=== PATIENT | female | born 1960 | race Caucasian/White ===

== ENCOUNTER 2017-06-09 08:43 | Inpatient (IN) | payer MEDICARE ==
[~2017-06-09] VITALS: Ht 172.7 cm; Wt 89.5 kg
[2017-06-09] VITALS (8 sets, daily range): BP systolic 147–165; BP diastolic 79–98; PULSE 86–95; RESP 18–20; TEMP 97.7–98.2; O2SAT 93–99
--- NOTE | 2017-06-09 09:08 | PD ---
HPI Chief Complaint: Abdominal Pain Time Seen by Provider: 09:08 Travel History International Travel<30 days: No Contact w/Intl Traveler<30days: No Traveled to known affect area: No History of Present Illness HPI 56-year-old female came to the emergency room with history of epigastric pain, vomiting and retching. She was brought in by EMS. Patient has history of pancreatitis in the past. Her last pancreatitis attack was 2 years ago. Patient had 4 beers last night. She started having this pain early this morning. Patient was in significant distress and it was difficult to get a complete history out of her. No blood in the vomit. Her vital signs were stable. Pain radiates to the back. No aggravating or relieving symptoms identified. [facility] Past Medical History Narrative Medical List of her past medical, surgical, social and family history is reviewed from the nursing note Diminished Hearing: No Hiatal Hernia: Yes Musculoskeletal: Yes (CHRONIC BACK PAIN) Pancreatitis: Yes Tetanus Vaccination: Unknown Influenza Vaccination: No ?: Not Past Surgical History Cholecystectomy: Yes Social History Alcohol Use: Yes (YESTERDAY ) Tobacco Use: No (20 PACK YEARS ) Substance Use: No Allergies-Medications (Allergen,Severity, Reaction): Coded Allergies: codeine (Verified Allergy, Intermediate, Hives, 06/09/17) Comments List of her allergies reviewed from the nursing note. Reported Meds & Prescriptions Reported Meds & Active Scripts Active Narrative Medication Waiting for the nurse to do the med reconciliation. Review of Systems Except as stated in HPI: all other systems reviewed are Neg Gastrointestinal: Positive: Nausea, Vomiting, Abdominal Pain Physical Exam Narrative GENERAL: Awake, alert, anxious, significant distress SKIN: Focused skin assessment warm/dry. HEAD: Atraumatic. Normocephalic. EYES: Pupils equal and round. No scleral icterus. No injection or drainage. ENT: No nasal bleeding or discharge. Mucous membranes pink and moist. NECK: Trachea midline. No JVD. CARDIOVASCULAR: Regular rate and rhythm. No murmur appreciated. RESPIRATORY: No accessory muscle use. Clear to auscultation. Breath sounds equal bilaterally. GASTROINTESTINAL: Abdomen soft, non-tender, nondistended. Hepatic and splenic margins not palpable. MUSCULOSKELETAL: No obvious deformities. No clubbing. No cyanosis. No edema. NEUROLOGICAL: Awake and alert. No obvious cranial nerve deficits. Motor grossly within normal limits. Normal speech. PSYCHIATRIC: Appropriate mood and affect; insight and judgment normal. Data Data Last Documented VS Orders Orders Complete Blood Count With Diff (06/09/17 09:13) Comprehensive Metabolic Panel (06/09/17 09:13) Lipase (06/09/17 09:13) Iv Access Insert/Monitor (06/09/17 09:13) Ecg Monitoring (06/09/17 09:13) Oximetry (06/09/17 09:13) Morphine Inj (Morphine Inj) (06/09/17 09:15) Ondansetron Inj (Zofran Inj) (06/09/17 09:15) Sodium Chlor 0.9% 1000 Ml Inj (Ns 1000 M (06/09/17 09:13) Sodium Chloride 0.9% Flush (Ns Flush) (06/09/17 09:15) Morphine Inj (Morphine Inj) (06/09/17 10:15) Us Abdomen Liver (06/09/17 ) Admit Order (Ed Use Only) (06/09/17 10:37) Labs Laboratory Tests Test 06/09/17 09:05 White Blood Count 9.7 TH/MM3 Red Blood Count 4.79 MIL/MM3 Hemoglobin 15.3 GM/DL Hematocrit 43.4 % Mean Corpuscular Volume 90.5 FL Mean Corpuscular Hemoglobin 31.8 PG Mean Corpuscular Hemoglobin Concent 35.2 % Red Cell Distribution Width 13.0 % Platelet Count 298 TH/MM3 Mean Platelet Volume 7.1 FL Neutrophils (%) (Auto) 62.9 % Lymphocytes (%) (Auto) 29.6 % Monocytes (%) (Auto) 6.9 % Eosinophils (%) (Auto) 0.3 % Basophils (%) (Auto) 0.3 % Neutrophils # (Auto) 6.1 TH/MM3 Lymphocytes # (Auto) 2.9 TH/MM3 Monocytes # (Auto) 0.7 TH/MM3 Eosinophils # (Auto) 0.0 TH/MM3 Basophils # (Auto) 0.0 TH/MM3 CBC Comment DIFF FINAL Differential Comment Blood Urea Nitrogen 14 MG/DL Creatinine 0.67 MG/DL Random Glucose 178 MG/DL Total Protein 7.9 GM/DL Albumin 4.1 GM/DL Calcium Level 8.4 MG/DL Alkaline Phosphatase 132 U/L Aspartate Amino Transf (AST/SGOT) 388 U/L Alanine Aminotransferase (ALT/SGPT) 175 U/L Total Bilirubin 0.5 MG/DL Sodium Level 134 MEQ/L Potassium Level 3.4 MEQ/L Chloride Level 100 MEQ/L Carbon Dioxide Level 23.8 MEQ/L Anion Gap 10 MEQ/L Lactate Dehydrogenase 486 U/L Triglycerides Level 516 MG/DL Cholesterol Level 179 MG/DL LDL Cholesterol MG/DL HDL Cholesterol 66.5 MG/DL Cholesterol/HDL Ratio 2.69 RATIO Lipase 6182 U/L Ethyl Alcohol Level 106 MG/DL MDM Medical Decision Making Medical Screen Exam Complete: Yes Emergency Medical Condition: Yes Medical Record Reviewed: Yes Differential Diagnosis Acute pancreatitis, acute gastritis Narrative Course 10:24 AM blood test results are back and patient has elevated LFTs and lipase. She was given medications twice for pain control. I have ordered for 1 L of IV fluid bolus. Patient will need to be admitted for intractable pain. Procedures EKG Prior to Arrival: No Diagnosis Primary Impression: Acute pancreatitis Qualified Codes: K85.20 - Alcohol induced acute pancreatitis without necrosis or infection Additional Impression: Intractable pain Admitting Information Admitting Physician Requests: Admit Scripts [guaiFENesin ER] 600 MG TABCR No Conflict Check 600 MG PO BID, #15 Prov: Brea Nicole MD R1 06/11/17 Citalopram (Celexa) 40 Mg Tab 40 MG PO DAILY, #30 TAB Prov: Brea Nicole MD R1 06/11/17 Ezetimibe (Zetia) 10 Mg Tab 10 MG PO DAILY, #30 TAB Prov: Brea Nicole MD R1 06/11/17 Khanh Esteban MD Jun 09, 2017 09:08
[2017-06-09] MEDS ORDERED: SODIUM CHLOR 0.9% 1000 ML INJ 1,000 ML IV SCH ×2 (09:13→12:00)
[2017-06-09] MEDS ORDERED: ONDANSETRON HCL 4 MG/2 ML VIAL IVP ONE (09:15)
[2017-06-09] MEDS ORDERED: MORPHINE SULFATE 4 MG/ML INJ IV PUSH ONE (09:15)
[2017-06-09] MEDS ORDERED: SODIUM CHLORIDE 0.9% FLUSH 10 ML FLUSH IV FLUSH PRN ×2 (09:15→10:45)
[2017-06-09 09:22] LABS: AUTOMATED NEUTROPHIL # 6.1 TH/MM3 (1.8-7.7); BASOPHIL % 0.3 % (0.0-2.0); EOSINOPHIL % 0.3 % (0.0-4.0); HEMATOCRIT 43.4 % (35.0-46.0); HEMOGLOBIN 15.3 GM/DL (11.6-15.3); LYMPH % 29.6 % (9.0-44.0); LYMPHOCYTE # 2.9 TH/MM3 (1.0-4.8); MEAN CELL VOLUME 90.5 FL (80.0-100.0); MEAN CORPUSCULAR HEMOGLOBIN 31.8 PG (27.0-34.0); MEAN CORPUSCULAR HGB CONC 35.2 % (32.0-36.0); MEAN PLATELET VOLUME 7.1 FL (7.0-11.0); MONO % 6.9 % (0.0-8.0); MONOCYTE # 0.7 TH/MM3 (0-0.9); NEUT % 62.9 % (16.0-70.0); PLATELET COUNT 298 TH/MM3 (150-450); RED BLOOD COUNT 4.79 MIL/MM3 (4.00-5.30); WHITE BLOOD COUNT 9.7 TH/MM3 (4.0-11.0)
[2017-06-09 09:37] LABS: ALBUMIN 4.1 GM/DL (3.4-5.0); AST (GOT) 388 U/L (15-37); BICARBONATE 23.8 MEQ/L (21.0-32.0); BLOOD UREA NITROGEN 14 MG/DL (7-18); CALCIUM 8.4 MG/DL (8.5-10.1); CHLORIDE 100 MEQ/L (98-107); CREATININE 0.67 MG/DL (0.50-1.00); GLUCOSE,RANDOM 178 MG/DL (74-106); SODIUM (NA) 134 MEQ/L (136-145)
[2017-06-09 09:38] LABS: ALT (GPT) 175 U/L (10-53)
[2017-06-09 09:41] LABS: ALKALINE PHOSPHATASE 132 U/L (45-117); TOTAL BILIRUBIN ADULT 0.5 MG/DL (0.2-1.0); TOTAL PROTEIN 7.9 GM/DL (6.4-8.2)
[2017-06-09] MEDS ORDERED: MORPHINE SULFATE 2 MG/ML INJ IV PUSH ONE (10:15)
--- NOTE | 2017-06-09 10:44 | HHI.HP ---
[facility] Service Family Medicine Primary Care Physician Flori Loo M.D. Admission Diagnosis Acute pancreatitis, intractable abdominal pain Diagnoses: International Travel<30 Days: No Contact w/Intl Traveler<30days: No Known Affected Area: No History of Present Illness 56 yr old w/ PMHx of pancreatitis presents to the ED with severe abdominal pain. She reports that she woke up this morning 5am with severe abdominal pain- epigastric, constant, aching, radiating to the back, 10/10, nothing makes it better or worse. She tried taking 1pill of hydrocodone, used for chronic back pain, w/o pain relief. She called 911, brought via EMS to the ED. She admits to drinking 3-4 beers last night, no hard liquor. She reports drinking twice/ week. She was admitted for pancreatis 2 years ago at [facility], 5 day hospital stay, pain controlled with morphine. Last meal was 6pm yesterday. Pt reports started a weight loss pill a week ago, unsure of the name. She denies hx of gallstones, had her gallstone removed 3 years ago. She endorses dry heaving and intermittent nausea. She complains of dysuria, not sure when it started. She denies fevers, vomiting, CP, and SOB. (Brea Nicole MD R1) Review of Systems Constitutional: COMPLAINS OF: Chills (mild chills), Night Sweats, DENIES: Fever Eyes: DENIES: Blurred vision Ears, nose, mouth, throat: DENIES: Throat pain, Ear Pain, Running Nose Respiratory: DENIES: Cough, Shortness of breath Cardiovascular: DENIES: Chest pain Gastrointestinal: COMPLAINS OF: Abdominal pain, Nausea, DENIES: Diarrhea, Vomiting Musculoskeletal: DENIES: Muscle aches Integumentary: DENIES: Rash Hematologic/lymphatic: DENIES: Bruising Neurologic: DENIES: Headache (Brea Nicole MD R1) Past Family Social History Past Medical History chronic back pain, she reports taking 3 pills of unknown dose of hydrocodone for 4 years, prescribed by her pain doctor, Dr. Stevens. depression hx of hiatal hernia Past Surgical History Gallbladder 3 years ago (Brea Nicole MD R1) Allergies: Coded Allergies: codeine (Verified Allergy, Intermediate, Hives, 06/09/17) Family History No hx of pancreatic cancer Social History Live alone, disabled due /chronic back pain due to fall quit 15 years ago, smoke 20 years 1ppd Drink 2 twice/week Denies illicit drug use 5 birds 2 dogs (Brea Nicole MD R1) Physical Exam Vital Signs Vital Signs Date Time Temp Pulse Resp B/P (MAP) Pulse Ox O2 Delivery O2 Flow Rate FiO2 06/09/17 09:35 18 06/09/17 09:21 98 Room Air 06/09/17 09:00 20 06/09/17 09:00 97.8 94 20 160/87 (111) Room Air 06/09/17 08:55 97.9 91 20 160/87 (111) 97 Physical Exam GENERAL patient lying in bed, uncomfortable, complaining of severe epigastric pain SKIN: No rashes, ecchymoses or lesions. Cool and dry. HEAD: Atraumatic. Normocephalic. No temporal or scalp tenderness. EYES: Pupils equal round and reactive. Extraocular motions intact. No scleral icterus. No injection or drainage. ENT: Nose without bleeding, purulent drainage or septal hematoma. Throat without erythema, tonsillar hypertrophy or exudate. Uvula midline. Airway patent. NECK: Trachea midline. No JVD or lymphadenopathy. Supple, nontender, no meningeal signs. CARDIOVASCULAR: Regular rate and rhythm without murmurs, gallops, or rubs. RESPIRATORY: Clear to auscultation. Breath sounds equal bilaterally. No wheezes , rales, or rhonchi. GASTROINTESTINAL: moderate tenderness to palpation in epigastric region, ND, + BS, no masses MUSCULOSKELETAL: Extremities without clubbing, cyanosis, or edema. No joint tenderness, effusion, or edema noted. NEUROLOGICAL: Awake, alert, oriented x3 Laboratory Laboratory Tests Test 06/09/17 09:05 White Blood Count 9.7 Red Blood Count 4.79 Hemoglobin 15.3 Hematocrit 43.4 Mean Corpuscular Volume 90.5 Mean Corpuscular Hemoglobin 31.8 Mean Corpuscular Hemoglobin Concent 35.2 Red Cell Distribution Width 13.0 Platelet Count 298 Mean Platelet Volume 7.1 Neutrophils (%) (Auto) 62.9 Lymphocytes (%) (Auto) 29.6 Monocytes (%) (Auto) 6.9 Eosinophils (%) (Auto) 0.3 Basophils (%) (Auto) 0.3 Neutrophils # (Auto) 6.1 Lymphocytes # (Auto) 2.9 Monocytes # (Auto) 0.7 Eosinophils # (Auto) 0.0 Basophils # (Auto) 0.0 CBC Comment DIFF FINAL Differential Comment Blood Urea Nitrogen 14 Creatinine 0.67 Random Glucose 178 Total Protein 7.9 Albumin 4.1 Calcium Level 8.4 Alkaline Phosphatase 132 Aspartate Amino Transf (AST/SGOT) 388 Alanine Aminotransferase (ALT/SGPT) 175 Total Bilirubin 0.5 Sodium Level 134 Potassium Level 3.4 Chloride Level 100 Carbon Dioxide Level 23.8 Anion Gap 10 Lipase 6182 (Brea Nicole MD R1) Result Diagram: 06/09/17 0905 06/09/17 0905 Imaging Last Impressions Liver Ultrasound 06/09/17 0000 Signed Impressions: Service Date/Time: Friday, June 09, 2017 10:52 - CONCLUSION: Mild hepatomegaly and likely hepatic steatosis. No focal sonographic findings. Anil Kurtz MD (Brea Nicole MD R1) Caprini VTE Risk Assessment Caprini VTE Risk Assessment: No/Low Risk (score <= 1) Caprini Risk Assessment Model Point Value = 1 Point Value = 2 Point Value = 3 Point Value = 5 Age 41-60 Minor surgery BMI > 25 kg/m2 Swollen legs Varicose veins or History of unexplained or recurrent spontaneous Oral contraceptives or hormone replacement Sepsis (< 1 month) Serious lung disease, including pneumonia (< 1 month) Abnormal pulmonary function Acute myocardial infarction Congestive heart failure (< 1 month) History of inflammatory bowel disease Medical patient at bed rest Age 61-74 Arthroscopic surgery Major open surgery (> 45 min) Laparoscopic surgery (> 45 min) Malignancy Confined to bed (> 72 hours) Immobilizing plaster cast Central venous access Age >= 75 History of VTE Family history of VTE Factor V Leiden Prothrombin [id number] Lupus anticoagulant Anticardiolipin antibodies Elevated serum homocysteine Heparin-induced thrombocytopenia Other congenital or acquired thrombophilia Stroke (< 1 month) Elective arthroplasty Hip, pelvis, or leg fracture Acute spinal cord injury (< 1 month) Prophylaxis Regimen Total Risk Factor Score Risk Level Prophylaxis Regimen 0-1 Low Early ambulation 2 Moderate Order ONE of the following: *Sequential Compression Device (SCD) *Heparin 5000 units SQ BID 3-4 Higher Order ONE of the following medications: *Heparin 5000 units SQ TID *Enoxaparin/Lovenox 40 mg SQ daily (WT < 150 kg, CrCl > 30 mL/min) *Enoxaparin/Lovenox 30 mg SQ daily (WT < 150 kg, CrCl > 10-29 mL/min) *Enoxaparin/Lovenox 30 mg SQ BID (WT < 150 kg, CrCl > 30 mL/min) AND/OR *Sequential Compression Device (SCD) 5 or more Highest Order ONE of the following medications: *Heparin 5000 units SQ TID (Preferred with Epidurals) *Enoxaparin/Lovenox 40 mg SQ daily (WT < 150 kg, CrCl > 30 mL/min) *Enoxaparin/Lovenox 30 mg SQ daily (WT < 150 kg, CrCl > 10-29 mL/min) *Enoxaparin/Lovenox 30 mg SQ BID (WT < 150 kg, CrCl > 30 mL/min) AND *Sequential Compression Device (SCD) (Brea Nicole MD R1) Assessment and Plan Assessment and Plan 56 yr old w/ hx of pancreatitis admitted for acute pancreatitis Code Status Full code Discussed Condition With Dr. Carlos and Dr. Velazquez (Brea Nicole MD R1) Attending Attestation THIS CASE WAS DISCUSSED WITH THE RESIDENT PHYSICIANS. I HAVE REVIEWED THE RECORD AND AGREE WITH THE ABOVE NOTE AND PLAN OF CARE WAS DISCUSSED. I HAVE AUTHORIZED THE ORDER FOR ADMISSION TO AN IN-PATIENT STATUS. (Xavier Carlos MD) Problem List: (1) Acute pancreatitis ICD Codes: K85.90 - Acute pancreatitis without necrosis or infection, unspecified Status: Acute Plan: Alcoholic induced pancreatitis vs hypertriglyceridemia vs gallstone obstruction Afebrile. No leukocytosis on CBC Elevated lipase 6182 AST elevated at 388, ALT elevated at 175 Alk phos elevated at 132 LDH elevated at 486 Lipid profile pending UDS and ethanol level pending Liver US demonstrated mild hepatomegaly and likely hepatic steatosis. Lu's score 2 due to AST 250 and LDH >350, severe pancreatitis unklikely Lactated ringer's at 190mls/hr- at 1 1/2 maintenance, pt not hypotensive Pain control: Toradol 30mg IV Push q6hr PRN pain 6-10, Dilaudid 1mg IV Push q6hr pain 6-10, Dilaudid 0.5mg IV Push breakthrough pain Zofran 4mg IV q4h for N/V PRN (2) Chronic back pain ICD Codes: M54.9 - Dorsalgia, unspecified; G89.29 - Other chronic pain Plan: Patient reports taking 3 pills of unknown dose of hydrocodone for 4 years Pain control as above (3) Nutrition, metabolism, and development symptoms ICD Codes: R63.8 - Other symptoms and signs concerning food and fluid intake Plan: Diet: NPO Fluids: LR 190mls/hr monitor I &Os, vitals q4hr DVTs: heparin 5,000 q8h, SCDs (Brea Nicole MD R1) Physician Certification 2 Midnight Certification Type: Admission for Inpatient Services Order for Inpatient Services The services are ordered in accordance with Medicare regulations or non- Medicare payer requirements, as applicable. In the case of services not specified as inpatient-only, they are appropriately provided as inpatient services in accordance with the 2-midnight benchmark. Estimated LOS (days): 2 2 days is the estimated time the patient will need to remain in the hospital, assuming treatment plan goals are met and no additional complications. Post-Hospital Plan: Home (Brea Nicole MD R1) Problem Qualifiers (1) Acute pancreatitis: Qualified Codes: K85.20 - Alcohol induced acute pancreatitis without necrosis or infection Brea Nicole MD R1 Jun 09, 2017 10:44 Xavier Carlos MD Jun 09, 2017 14:46
[2017-06-09] MEDS ORDERED: ONDANSETRON HCL 4 MG/2 ML VIAL IV PUSH PRN (11:15)
--- NOTE | 2017-06-09 11:34 | RADRPT ---
EXAM DATE/TIME: 06/09/2017 10:52 [facility] COMPARISON: No previous studies available for comparison. INDICATIONS : Nausea/vomiting. MEDICAL HISTORY : Pancreatitis. Hernia, hiatal. Chronic back pain. SURGICAL HISTORY : Cholecystectomy. ENCOUNTER: Initial ACUITY: 1 day PAIN SCORE: 10/10 LOCATION: Bilateral upper quadrant MEASUREMENTS: LIVER: 19.1 cm length COMMON DUCT: 8 mm RIGHT KIDNEY: 10.7 x 4.7 x 4.7 cm SPLEEN: 12.4 cm length FINDINGS: LIVER: Enlarged with diffuse increase in echogenicity suggesting steatosis. No focal mass or biliary ductal dilatation COMMON DUCT: No intraluminal mass or stone visualized. GALLBLADDER: Surgically absent. PANCREAS: The visualized portions are within normal limits. RIGHT KIDNEY: No hydronephrosis, stone or mass. SPLEEN: No focal lesion. CONCLUSION: Mild hepatomegaly and likely hepatic steatosis. No focal sonographic findings. Anil Kurtz MD on June 09, 2017 at 11:29 Board Certified Radiologist. This report was verified electronically.
[2017-06-09] MEDS ORDERED: LORazepam 1 MG TAB PO PRN (11:45)
[2017-06-09] MEDS ORDERED: LORazepam 2 MG TAB PO PRN (11:45)
[2017-06-09] MEDS ORDERED: LORazepam 2 MG/ML VIAL IV PUSH PRN ×4 (11:45)
[2017-06-09] MEDS ORDERED: FLUMAZENIL 0.5 MG/5 ML VIAL IV PUSH PRN (11:45)
[2017-06-09] MEDS ORDERED: KETOROLAC TROMETHAMINE 30 MG/ML (IVP) VIAL IV PUSH SCH (12:00)
[2017-06-09] MEDS ORDERED: HYDROmorphone HCL PF 1 MG/ML VIAL IV PUSH PRN (12:00)
[2017-06-09] MEDS: SODIUM CHLORIDE 0.9% FLUSH 10 ML FLUSH IV FLUSH SCH ×2 (12:13→21:31)
[2017-06-09] MEDS: LACTATED RINGER'S 1000 ML INJ 1,000 ML IV SCH ×2 (12:13→17:34)
[2017-06-09] MEDS: HEPARIN SODIUM - SQ 10,000 UNITS/ML VIAL SQ SCH ×2 (12:13→21:35)
[2017-06-09] MEDS ORDERED: KETOROLAC TROMETHAMINE 30 MG/ML (IVP) VIAL IV PUSH PRN ×2 (12:30→14:45)
[2017-06-09] MEDS ORDERED: HYDROmorphone HCL PF 2 MG/ML VIAL IV PUSH PRN (12:30)
[2017-06-09 12:33] LABS: CHOLESTEROL/ HDL RATIO 2.69 RATIO; HDL CHOLESTEROL 66.5 MG/DL (40.0-60.0)
--- NOTE | 2017-06-09 14:46 | HHI.HP ---
[facility] Service Family Medicine Primary Care Physician Flori Loo M.D. Admission Diagnosis Acute pancreatitis, intractable abdominal pain Diagnoses: (1) Acute pancreatitis (2) Chronic back pain (3) Nutrition, metabolism, and development symptoms International Travel<30 Days: No Contact w/Intl Traveler<30days: No Known Affected Area: No History of Present Illness 56-year-old female presenting to the emergency department with epigastric abdominal pain and found to have pancreatitis. She has a history of pancreatitis 2 years ago requiring hospitalization at [facility]. She states this episode came on suddenly upon awakening at 5 AM. She describes it as a severe, sharp, stabbing epigastric abdominal pain that was radiating to the back. She states that it was 10/10 in intensity and was constant. She denies any vomiting with this, however she has felt nauseated and has had some dry heaves. She did try to take a pain medication, 1 pill of hydrocodone ( unknown dose), without any benefit. She has a past history of heavy alcohol use including vodka and beer, however she states she has not drank heavily for 5 years. She states that yesterday evening, she had 4 beers, however this was the only alcohol that she has had over the last week at least. She denies chest pain or palpitations, she denies fevers or chills, she denies emesis/hematemesis, she denies diarrhea or dysuria. She denies hx of gallstones, had her gallbladder removed 3 years ago. She denies any recent new medications or antibiotic use. Of note, she states that she did start a [id number] weight loss supplement 1 week ago. She is unsure of the name or the ingredients of the supplement. Is contacting her to obtain this information. Review of Systems Constitutional: DENIES: Fatigue, Fever, Chills Respiratory: DENIES: Cough, Wheezing, Sputum production, Shortness of breath Cardiovascular: DENIES: Chest pain, Palpitations, Lower Extremity Edema Gastrointestinal: COMPLAINS OF: Abdominal pain, Nausea, DENIES: Black stools, Bloody stools, Constipation, Diarrhea, Vomiting, Difficulty Swallowing Musculoskeletal: DENIES: Joint pain Psychiatric: DENIES: Anxiety Past Family Social History Past Medical History chronic back pain, she reports taking 3 pills of unknown dose of hydrocodone for 4 years, prescribed by her pain doctor, Dr. Stevens. depression hx of hiatal hernia Past Surgical History Gallbladder 3 years ago Allergies: Coded Allergies: codeine (Verified Allergy, Intermediate, Hives, 06/09/17) Family History No hx of pancreatic cancer Social History Live alone, disabled due /chronic back pain due to fall quit 15 years ago, smoke 20 years 1ppd Drink 2 twice/week Denies illicit drug use 5 birds 2 dogs Physical Exam Vital Signs Vital Signs Date Time Temp Pulse Resp B/P (MAP) Pulse Ox O2 Delivery O2 Flow Rate FiO2 06/09/17 13:18 06/09/17 13:00 86 20 147/79 (101) 99 Room Air 06/09/17 11:00 90 20 165/89 (114) 99 Room Air 06/09/17 10:40 18 06/09/17 09:35 18 06/09/17 09:21 98 Room Air 06/09/17 09:00 20 06/09/17 09:00 97.8 94 20 160/87 (111) Room Air 06/09/17 08:55 97.9 91 20 160/87 (111) 97 Physical Exam GENERAL patient lying in bed, uncomfortable, complaining of severe epigastric pain and holding her stomach SKIN: Multiple tattoos on her upper extremities HEAD: Atraumatic. Normocephalic. CARDIOVASCULAR: Regular rate and rhythm without murmurs, gallops, or rubs. RESPIRATORY: Clear to auscultation. Breath sounds equal bilaterally. No wheezes , rales, or rhonchi. GASTROINTESTINAL: moderate tenderness to palpation in epigastric region, ND, + BS, no significant rebound or guarding MUSCULOSKELETAL: Extremities without clubbing, cyanosis, or edema. NEUROLOGICAL: Awake, alert, oriented x3 Laboratory Laboratory Tests Test 06/09/17 09:05 White Blood Count 9.7 Red Blood Count 4.79 Hemoglobin 15.3 Hematocrit 43.4 Mean Corpuscular Volume 90.5 Mean Corpuscular Hemoglobin 31.8 Mean Corpuscular Hemoglobin Concent 35.2 Red Cell Distribution Width 13.0 Platelet Count 298 Mean Platelet Volume 7.1 Neutrophils (%) (Auto) 62.9 Lymphocytes (%) (Auto) 29.6 Monocytes (%) (Auto) 6.9 Eosinophils (%) (Auto) 0.3 Basophils (%) (Auto) 0.3 Neutrophils # (Auto) 6.1 Lymphocytes # (Auto) 2.9 Monocytes # (Auto) 0.7 Eosinophils # (Auto) 0.0 Basophils # (Auto) 0.0 CBC Comment DIFF FINAL Differential Comment Blood Urea Nitrogen 14 Creatinine 0.67 Random Glucose 178 Total Protein 7.9 Albumin 4.1 Calcium Level 8.4 Alkaline Phosphatase 132 Aspartate Amino Transf (AST/SGOT) 388 Alanine Aminotransferase (ALT/SGPT) 175 Total Bilirubin 0.5 Sodium Level 134 Potassium Level 3.4 Chloride Level 100 Carbon Dioxide Level 23.8 Anion Gap 10 Lactate Dehydrogenase 486 Triglycerides Level 516 Cholesterol Level 179 HDL Cholesterol 66.5 Cholesterol/HDL Ratio 2.69 Lipase 6182 Ethyl Alcohol Level 106 Result Diagram: 06/09/17 0905 06/09/17 0905 Imaging Last Impressions Liver Ultrasound 06/09/17 0000 Signed Impressions: Service Date/Time: Friday, June 09, 2017 10:52 - CONCLUSION: Mild hepatomegaly and likely hepatic steatosis. No focal sonographic findings. MD Brittany Meza VTE Risk Assessment Caprini VTE Risk Assessment: No/Low Risk (score <= 1) Caprini Risk Assessment Model Point Value = 1 Point Value = 2 Point Value = 3 Point Value = 5 Age 41-60 Minor surgery BMI > 25 kg/m2 Swollen legs Varicose veins or History of unexplained or recurrent spontaneous Oral contraceptives or hormone replacement Sepsis (< 1 month) Serious lung disease, including pneumonia (< 1 month) Abnormal pulmonary function Acute myocardial infarction Congestive heart failure (< 1 month) History of inflammatory bowel disease Medical patient at bed rest Age 61-74 Arthroscopic surgery Major open surgery (> 45 min) Laparoscopic surgery (> 45 min) Malignancy Confined to bed (> 72 hours) Immobilizing plaster cast Central venous access Age >= 75 History of VTE Family history of VTE Factor V Leiden Prothrombin [id number] Lupus anticoagulant Anticardiolipin antibodies Elevated serum homocysteine Heparin-induced thrombocytopenia Other congenital or acquired thrombophilia Stroke (< 1 month) Elective arthroplasty Hip, pelvis, or leg fracture Acute spinal cord injury (< 1 month) Prophylaxis Regimen Total Risk Factor Score Risk Level Prophylaxis Regimen 0-1 Low Early ambulation 2 Moderate Order ONE of the following: *Sequential Compression Device (SCD) *Heparin 5000 units SQ BID 3-4 Higher Order ONE of the following medications: *Heparin 5000 units SQ TID *Enoxaparin/Lovenox 40 mg SQ daily (WT < 150 kg, CrCl > 30 mL/min) *Enoxaparin/Lovenox 30 mg SQ daily (WT < 150 kg, CrCl > 10-29 mL/min) *Enoxaparin/Lovenox 30 mg SQ BID (WT < 150 kg, CrCl > 30 mL/min) AND/OR *Sequential Compression Device (SCD) 5 or more Highest Order ONE of the following medications: *Heparin 5000 units SQ TID (Preferred with Epidurals) *Enoxaparin/Lovenox 40 mg SQ daily (WT < 150 kg, CrCl > 30 mL/min) *Enoxaparin/Lovenox 30 mg SQ daily (WT < 150 kg, CrCl > 10-29 mL/min) *Enoxaparin/Lovenox 30 mg SQ BID (WT < 150 kg, CrCl > 30 mL/min) AND *Sequential Compression Device (SCD) Assessment and Plan Assessment and Plan 56 yr old w/ hx of pancreatitis admitted for acute pancreatitis Problem List: (1) Acute pancreatitis ICD Codes: K85.90 - Acute pancreatitis without necrosis or infection, unspecified Status: Acute Plan: Alcoholic induced pancreatitis vs hypertriglyceridemia vs gallstone obstruction -Possible medication induced secondary to weight loss supplement, we will obtain information on the supplement from her IV fluids: Lactated Ringer's at 190 mL/hour (1.5 maintenance) -Received normal saline 1 L bolus in the emergency department Pain control: Toradol 30 mg IV push every 6 hours Dilaudid 1 mg IV every 6 hours as needed pain Dilaudid 0.5 mg IV every 3 hours as needed for breakthrough pain Bowel rest with n.p.o. Zofran 4mg IV q4h for N/V PRN CIWA protocol in place due to history of alcohol use Urine drug screen pending Lipid profile pending to evaluate for hypertriglyceridemia LDH elevated at 486 Liver US demonstrated mild hepatomegaly and likely hepatic steatosis. Lu's score on admission is 2 due to AST 250 and LDH >350, severe pancreatitis unklikely (2) Chronic back pain ICD Codes: M54.9 - Dorsalgia, unspecified; G89.29 - Other chronic pain Plan: Patient reports taking 3 pills of unknown dose of hydrocodone for 4 years Pain control as above (3) Nutrition, metabolism, and development symptoms ICD Codes: R63.8 - Other symptoms and signs concerning food and fluid intake Plan: Diet: NPO Fluids: LR 190mls/hr monitor I &Os, vitals q4hr DVTs: heparin 5,000 q8h, SCDs Physician Certification 2 Midnight Certification Type: Admission for Inpatient Services Order for Inpatient Services The services are ordered in accordance with Medicare regulations or non- Medicare payer requirements, as applicable. In the case of services not specified as inpatient-only, they are appropriately provided as inpatient services in accordance with the 2-midnight benchmark. Estimated LOS (days): 2 2 days is the estimated time the patient will need to remain in the hospital, assuming treatment plan goals are met and no additional complications. Post-Hospital Plan: Not yet determined Problem Qualifiers (1) Acute pancreatitis: Qualified Codes: K85.20 - Alcohol induced acute pancreatitis without necrosis or infection Xavier Carlos MD Jun 09, 2017 14:46
[2017-06-09] MEDS ORDERED: MORPHINE SULFATE 2 MG/ML INJ IV PUSH PRN (17:15)
[2017-06-09] MEDS: MORPHINE SULFATE 4 MG/ML INJ IV PUSH PRN ×2 (17:26→21:31)
[2017-06-10] VITALS (8 sets, daily range): BP systolic 127–172; BP diastolic 82–96; PULSE 92–120; RESP 18–20; TEMP 98.4–99.4; O2SAT 93–95
[2017-06-10] MEDS: LACTATED RINGER'S 1000 ML INJ 1,000 ML IV SCH ×5 (00:35→20:50)
[2017-06-10] MEDS: MORPHINE SULFATE 4 MG/ML INJ IV PUSH PRN ×6 (01:59→21:59)
[2017-06-10] MEDS: HEPARIN SODIUM - SQ 10,000 UNITS/ML VIAL SQ SCH ×3 (04:00→20:51)
[2017-06-10 05:12] LABS: BILIRUBIN, URINE NEG (NEG); BLOOD, URINE NEG (NEG); GLUCOSE,URINE NEG (NEG); HYALINE CAST, URINE 4 /lpf (RARE); KETONE, URINE NEG (NEG); MUCUS URINE FEW /lpf (OCC); NITRITE,URINE NEG (NEG); PH, URINE 5.5 (5.0-8.5); SQUAMOUS EPITHELIAL CELL URINE <1 /hpf (0-5); URINE COLOR YELLOW (YELLW/STRAW); URINE LEUKOCYTE ESTERASE NEG (NEG)
[2017-06-10] MEDS ORDERED: SIMETHICONE 80 MG CHEWABLE TAB CHEW ONE (06:30)
[2017-06-10 06:54] LABS: AUTOMATED NEUTROPHIL # 8.4 TH/MM3 (1.8-7.7); BASOPHIL % 0.1 % (0.0-2.0); EOSINOPHIL % 0.1 % (0.0-4.0); HEMOGLOBIN 14.8 GM/DL (11.6-15.3); LYMPH % 14.9 % (9.0-44.0); LYMPHOCYTE # 1.6 TH/MM3 (1.0-4.8); MEAN CELL VOLUME 91.3 FL (80.0-100.0); MEAN CORPUSCULAR HEMOGLOBIN 32.1 PG (27.0-34.0); MEAN CORPUSCULAR HGB CONC 35.1 % (32.0-36.0); MEAN PLATELET VOLUME 7.4 FL (7.0-11.0); MONO % 8.4 % (0.0-8.0); MONOCYTE # 0.9 TH/MM3 (0-0.9); NEUT % 76.5 % (16.0-70.0); PLATELET COUNT 236 TH/MM3 (150-450); RED CELL DISTRIBUTION WIDTH 12.9 % (11.6-17.2); WHITE BLOOD COUNT 10.9 TH/MM3 (4.0-11.0)
[2017-06-10 07:29] LABS: ALBUMIN 3.3 GM/DL (3.4-5.0); ALKALINE PHOSPHATASE 112 U/L (45-117); ALT (GPT) 97 U/L (10-53); AST (GOT) 119 U/L (15-37); BICARBONATE 22.3 MEQ/L (21.0-32.0); BLOOD UREA NITROGEN 10 MG/DL (7-18); CALCIUM 7.6 MG/DL (8.5-10.1); CHLORIDE 101 MEQ/L (98-107); CREATININE 0.56 MG/DL (0.50-1.00); GLOMERULAR FILTRATION RATE 112 ML/MIN (>89); GLUCOSE,RANDOM 96 MG/DL (74-106); SODIUM (NA) 135 MEQ/L (136-145); TOTAL BILIRUBIN ADULT 0.9 MG/DL (0.2-1.0); TOTAL PROTEIN 6.5 GM/DL (6.4-8.2)
[2017-06-10] MEDS ORDERED: MAGNESIUM HYDROXIDE SUSP 30 ML CUP PO PRN (09:15)
[2017-06-10] MEDS ORDERED: ALPRAZolam 0.5 MG TAB PO PRN (09:15)
[2017-06-10] MEDS: KETOROLAC TROMETHAMINE 30 MG/ML (IVP) VIAL IV PUSH SCH ×3 (09:20→20:52)
[2017-06-10] MEDS: SODIUM CHLORIDE 0.9% FLUSH 10 ML FLUSH IV FLUSH SCH ×2 (09:22→20:51)
[2017-06-10] MEDS: DOCUSATE SODIUM 50 MG/SENNA 8.6 MG TAB PO SCH ×2 (09:59→20:51)
[2017-06-10] MEDS: CITALOPRAM HYDROBROMIDE 40 MG TAB PO SCH (09:59)
[2017-06-10] MEDS ORDERED: POTASSIUM CHLORIDE 25 MEQ EFFERVESCENT TAB PO ONE (10:00)
--- NOTE | 2017-06-10 10:22 | HHI.FPPN ---
Subjective Remarks No acute events overnight. Pt lying in bed, comfortably. Patient is tachycardic at 101 and hypertensive at 172/95. She states that her pain is well-controlled on morphine. She complains of bloating and gas, but has been moderately relieved with gas-x. She also complains of slight SOB. Otherwise, she denies CP and N/V. (Brea Nicole MD R1) Objective Vitals Vital Signs Date Time Temp Pulse Resp B/P (MAP) Pulse Ox O2 Delivery O2 Flow Rate FiO2 06/10/17 08:00 98.5 101 20 172/95 (120) 93 06/10/17 04:00 98.5 104 20 172/96 (121) 94 06/10/17 00:00 98.4 92 18 160/90 (113) 95 06/09/17 20:00 Room Air 06/09/17 20:00 98.2 95 18 150/98 (115) 95 06/09/17 17:58 93 Room Air 21 06/09/17 17:58 93 21 06/09/17 16:00 97.7 88 20 150/90 (110) 98 06/09/17 13:18 06/09/17 13:00 86 20 147/79 (101) 99 Room Air 06/09/17 11:00 90 20 165/89 (114) 99 Room Air 06/09/17 10:40 18 I/O 06/09/17 06/09/17 06/09/17 06/10/17 06/10/17 06/10/17 07:00 15:00 23:00 07:00 15:00 23:00 Intake Total 1000 ml 2250 ml Output Total 100 ml Balance 1000 ml 2150 ml Intake Oral 0 ml IV Total 1000 ml 2250 ml Output Urine Total 100 ml # Bowel Movements 0 (Brea Nicole MD R1) Result Diagram: 06/10/17 0545 06/10/17 0545 Objective Remarks GENERAL patient lying in bed, comfortable CARDIOVASCULAR: Regular rate and rhythm without murmurs, gallops, or rubs. RESPIRATORY: Clear to auscultation. Breath sounds equal bilaterally. No wheezes , rales, or rhonchi. GASTROINTESTINAL: moderate tenderness to palpation in epigastric region improved from prior exam, ND, + BS, no masses MUSCULOSKELETAL: Extremities without clubbing, cyanosis, or edema. No joint tenderness, effusion, or edema noted. NEUROLOGICAL: Awake, alert, oriented x3 (Brea Nicole MD R1) A/P Assessment and Plan 56 yr old w/ hx of pancreatitis admitted for acute pancreatitis (Brea Nicole MD R1) Attending Attestation Patient seen and examined during rounds this morning with resident physicians The patient case and updates were discussed with the resident physicians during rounds I have read the above note and agree with the physical exam and assessment/plan as discussed with me I was involved in all medical decision making for this patient Xavier Carlos MD (Xavier Carlos MD) Problem List: (1) Acute pancreatitis ICD Codes: K85.90 - Acute pancreatitis without necrosis or infection, unspecified Status: Acute Plan: Alcoholic induced pancreatitis vs hypertriglyceridemia vs gallstone obstruction -Possible medication induced secondary to weight loss supplement, Forskolin IV fluids: Lactated Ringer's at 190 mL/hour (1.5 maintenance) -Received normal saline 1 L bolus in the emergency department Pain control: Toradol 30 mg IV push every 6 hours LUPE Morphine 2mg IV push q4hr Pain 3-5 Morphine 4mg IV push q4hr pain6-10 Will advance to clear liquids today Zofran 4mg IV q4h for N/V PRN CIWA protocol in place due to history of alcohol use Urine drug screen positive for opiates and benzos Lipid profile demonstrates elevated triglycerides at 516 LDH elevated at 486 Liver US demonstrated mild hepatomegaly and likely hepatic steatosis. Lu's score on admission is 2 due to AST 250 and LDH >350, severe pancreatitis unlikely (2) Hypertriglyceridemia ICD Codes: E78.1 - Pure hyperglyceridemia Plan: TG elevated at 516H -Will start fish oil 4g/day, will call pharmacy to see if available (3) Chronic back pain ICD Codes: M54.9 - Dorsalgia, unspecified; G89.29 - Other chronic pain Plan: Patient reports taking 3 pills of unknown dose of hydrocodone for 4 years Pain control as above (4) Anxiety ICD Codes: F41.9 - Anxiety disorder, unspecified Plan: Continue home Celexa 40mg PO daily and Xanax 0.5mg PO HS (5) Nutrition, metabolism, and development symptoms ICD Codes: R63.8 - Other symptoms and signs concerning food and fluid intake Plan: Diet: NPO Fluids: LR 190mls/hr monitor I &Os, vitals q4hr DVTs: heparin 5,000 q8h, SCDs (Brea Nicole MD R1) Problem Qualifiers (1) Acute pancreatitis: Qualified Codes: K85.20 - Alcohol induced acute pancreatitis without necrosis or infection Brea Nicole MD R1 Jun 10, 2017 10:22 Xavier Carlos MD Jun 10, 2017 16:47
[2017-06-10] MEDS ORDERED: hydrALAZINE HCL 25 MG TAB PO PRN (10:30)
[2017-06-10] MEDS ORDERED: KETOROLAC TROMETHAMINE 30 MG/ML (IVP) VIAL IV PUSH SCH (12:00)
[2017-06-10] MEDS ORDERED: POTASSIUM CHLORIDE 10 MEQ CAP PO ONE (14:00)
[2017-06-10] MEDS: EZETIMIBE 10 MG TAB PO SCH (16:06)
[2017-06-11 00:45] VITALS: BP 125/60; PULSE 80; RESP 20; TEMP 98.1; O2SAT 98
[2017-06-11] MEDS: LACTATED RINGER'S 1000 ML INJ 1,000 ML IV SCH ×2 (01:34→05:51)
[2017-06-11] MEDS: MORPHINE SULFATE 4 MG/ML INJ IV PUSH PRN ×3 (01:34→10:23)
[2017-06-11 04:40] VITALS: BP 120/78; PULSE 88; RESP 19; TEMP 97.6; O2SAT 97
[2017-06-11] MEDS: HEPARIN SODIUM - SQ 10,000 UNITS/ML VIAL SQ SCH (04:43)
[2017-06-11] MEDS: KETOROLAC TROMETHAMINE 30 MG/ML (IVP) VIAL IV PUSH SCH ×2 (04:43→08:39)
[2017-06-11 07:12] LABS: HEMATOCRIT 34.3 % (35.0-46.0); HEMOGLOBIN 12.1 GM/DL (11.6-15.3); MEAN CELL VOLUME 90.7 FL (80.0-100.0); MEAN CORPUSCULAR HEMOGLOBIN 31.9 PG (27.0-34.0); MEAN CORPUSCULAR HGB CONC 35.2 % (32.0-36.0); MEAN PLATELET VOLUME 7.5 FL (7.0-11.0); PLATELET COUNT 173 TH/MM3 (150-450); RED BLOOD COUNT 3.78 MIL/MM3 (4.00-5.30); RED CELL DISTRIBUTION WIDTH 12.9 % (11.6-17.2); WHITE BLOOD COUNT 7.1 TH/MM3 (4.0-11.0)
[2017-06-11 07:24] LABS: ALBUMIN 2.8 GM/DL (3.4-5.0); ALT (GPT) 63 U/L (10-53); AST (GOT) 84 U/L (15-37); BICARBONATE 31.8 MEQ/L (21.0-32.0); BLOOD UREA NITROGEN 6 MG/DL (7-18); CALCIUM 7.6 MG/DL (8.5-10.1); CHLORIDE 102 MEQ/L (98-107); CREATININE 0.44 MG/DL (0.50-1.00); GLOMERULAR FILTRATION RATE 148 ML/MIN (>89); GLUCOSE,RANDOM 81 MG/DL (74-106); SODIUM (NA) 138 MEQ/L (136-145)
[2017-06-11 07:33] LABS: ALKALINE PHOSPHATASE 102 U/L (45-117); TOTAL BILIRUBIN ADULT 0.9 MG/DL (0.2-1.0)
[2017-06-11 08:00] VITALS: BP 155/86; PULSE 87; RESP 18; TEMP 98.8; O2SAT 94
[2017-06-11] MEDS: CITALOPRAM HYDROBROMIDE 40 MG TAB PO SCH (08:38)
[2017-06-11] MEDS: EZETIMIBE 10 MG TAB PO SCH (08:38)
[2017-06-11] MEDS: SODIUM CHLORIDE 0.9% FLUSH 10 ML FLUSH IV FLUSH SCH (08:42)
[2017-06-11] MEDS: DOCUSATE SODIUM 50 MG/SENNA 8.6 MG TAB PO SCH (08:43)
--- NOTE | 2017-06-11 10:42 | HHI.FPPN ---
Subjective Remarks No acute events overnight. Pt lying in bed, comfortably. Pt is feeling well this morning, she is interested in going home. She has tolerated clear liquid diet and had a BM yesterday. She complains of lower abdominal pain, but no longer epigastric pain. She complains of congestion. She denies CP, SOB, and N/ V. (Brea Nicole MD R1) Objective Vitals Vital Signs Date Time Temp Pulse Resp B/P (MAP) Pulse Ox O2 Delivery O2 Flow Rate FiO2 06/11/17 07:49 21 06/11/17 07:49 Room Air 06/11/17 04:40 97.6 88 19 120/78 (92) 97 06/11/17 00:45 98.1 80 20 125/60 (81) 98 06/10/17 20:00 98.9 102 19 127/82 (97) 94 06/10/17 19:00 Room Air 06/10/17 17:47 95 Room Air 21 06/10/17 17:47 21 06/10/17 16:07 98.9 120 20 148/92 (110) 95 06/10/17 12:24 99.4 97 20 161/94 (116) 95 06/10/17 12:00 95 06/10/17 12:00 95 Room Air I/O 06/10/17 06/10/17 06/10/17 06/11/17 06/11/17 06/11/17 07:00 15:00 23:00 07:00 15:00 23:00 Intake Total 2250 ml 480 ml 1800 ml 3000 ml Output Total 100 ml Balance 2150 ml 480 ml 1800 ml 3000 ml Intake Oral 0 ml 480 ml 1000 ml IV Total 2250 ml 1800 ml 2000 ml Output Urine Total 100 ml # Voids 1 3 # Bowel Movements 0 0 (Brae Nicole MD R1) Result Diagram: 06/11/17 0603 06/11/17 0603 Objective Remarks GENERAL patient lying in bed, comfortable CARDIOVASCULAR: Regular rate and rhythm without murmurs, gallops, or rubs. RESPIRATORY: Clear to auscultation. Breath sounds equal bilaterally. No wheezes , rales, or rhonchi. GASTROINTESTINAL: soft, ND/NT + BS, no guarding, no masses MUSCULOSKELETAL: Extremities without clubbing, cyanosis, or edema. No joint tenderness, effusion, or edema noted. NEUROLOGICAL: Awake, alert, oriented x3 (Brea Nicole MD R1) A/P Assessment and Plan 56 yr old w/ hx of pancreatitis admitted for acute pancreatitis Discharge Planning If patient tolerates regular diet, plan to discharge this afternoon (Brea Nicole MD R1) Attending Attestation Pt. examined and case discussed with resident physicians. I personally examined patient this morning during rounds separate from the residents. I have read the above note and agree with the assessment and plan as discussed with me. I was involved in all medical decision making for this patient. Xavier Carlos MD (Xavier Carlos MD) Problem List: (1) Acute pancreatitis ICD Codes: K85.90 - Acute pancreatitis without necrosis or infection, unspecified Status: Acute Plan: Alcoholic induced pancreatitis vs hypertriglyceridemia vs gallstone obstruction -Possible medication induced secondary to weight loss supplement, Forskolin IV fluids: Lactated Ringer's at 190 mL/hour (1.5 maintenance) -Received normal saline 1 L bolus in the emergency department Pain control: Toradol 30 mg IV push every 6 hours LUPE Morphine 2mg IV push q4hr Pain 3-5 Morphine 4mg IV push q4hr pain6-10 Will advance to regular diet today Zofran 4mg IV q4h for N/V PRN CIWA protocol in place due to history of alcohol use Urine drug screen positive for opiates and benzos Lipid profile demonstrates elevated triglycerides at 516 LDH elevated at 486 Liver US demonstrated mild hepatomegaly and likely hepatic steatosis. [place]'s score on admission is 2 due to AST 250 and LDH >350, severe pancreatitis unlikely (2) Hypertriglyceridemia ICD Codes: E78.1 - Pure hyperglyceridemia Plan: TG elevated at 516H -Fish oil not available at the pharmacy, patient started on ezetimibe 10mg PO daily (3) Chronic back pain ICD Codes: M54.9 - Dorsalgia, unspecified; G89.29 - Other chronic pain Plan: Patient reports taking 3 pills of unknown dose of hydrocodone for 4 years Pain control as above (4) Anxiety ICD Codes: F41.9 - Anxiety disorder, unspecified Plan: Continue home Celexa 40mg PO daily and Xanax 0.5mg PO HS (5) Nutrition, metabolism, and development symptoms ICD Codes: R63.8 - Other symptoms and signs concerning food and fluid intake Plan: Diet: advance to regular diet today Fluids: LR 190mls/hr monitor I &Os, vitals q4hr DVTs: heparin 5,000 q8h, SCDs (Brea Nicole MD R1) Problem Qualifiers (1) Acute pancreatitis: Qualified Codes: K85.20 - Alcohol induced acute pancreatitis without necrosis or infection Brea Nicole MD R1 Jun 11, 2017 10:42 Xavier Carlos MD Jun 11, 2017 20:55
[2017-06-11 12:00] VITALS: BP 155/90; PULSE 95; RESP 16; TEMP 97.9; O2SAT 97
[2017-06-11] MEDS ORDERED: guaiFENesin E.R. 600 MG TAB PO SCH (12:00)
[2017-06-11] MEDS ORDERED: guaiFENesin ER PO (13:24)
[2017-06-11] MEDS ORDERED: CELE40TA PO (13:24)
[2017-06-11] MEDS ORDERED: EZET10 PO (13:24)
--- NOTE | 2017-06-11 13:28 | PD.AMA ---
Against Medical Advice Note Diagnosis: (1) Acute pancreatitis (2) Hypertriglyceridemia (3) Depression Discharge Disposition: Against Medical Advice Pt Condition on Discharge: Stable AMA Statement Patient Angeline Graham has decided to leave the hospital against medical advice. Patient was compliant during hospital stay and there were no problems. However, patient left before discharge order was put in. Brea Nicole MD R1 Jun 11, 2017 13:28
== END 2017-06-11 13:20 | disposition left against medical advice (07) | DRG 440 ==
LOC: NEPE 08:43 → NEDA 10:39 → N04B 13:30
PROVIDERS: ADMIT Family Medicine; ATTEND Family Medicine
DX: K85.20 Alcohol induced acute pancreatitis without necrosis or infection (principal); K76.0 Fatty (change of) liver, not elsewhere classified; F32.9 Major depressive disorder, single episode, unspecified; G89.29 Other chronic pain; M54.9 Dorsalgia, unspecified; E78.1 Pure hyperglyceridemia; F41.9 Anxiety disorder, unspecified; R00.0 Tachycardia, unspecified; R14.0 Abdominal distension (gaseous); R74.0 Nonspecific elevation of levels of transaminase and lactic acid dehydrogenase [LDH]; Z87.891 Personal history of nicotine dependence; Z79.891 Long term (current) use of opiate analgesic
CPT/HCPCS: 76705; 80053; 80061; 80307; 81001; 83615; 83690; 85025; 85027; 94150; 94762; 96361; 96374; 96375; J1170; J1644; J1885; J2270; J2405; J7030; J7120

== ENCOUNTER 2017-06-16 10:55 | Emergency (ER) | payer MEDICARE ==
[~2017-06-16] VITALS: Ht 172.7 cm; Wt 85.5 kg
[~2017-06-16 10:55] MED LIST: CELE40TA PO; EZET10 PO; guaiFENesin ER PO
[2017-06-16 10:56] VITALS: BP 143/78; PULSE 85; RESP 20; TEMP 98.5; O2SAT 97
[2017-06-16] MEDS ORDERED: OMEP20TA93 PO (11:27)
--- NOTE | 2017-06-16 11:37 | PD ---
HPI Chief Complaint: Abdominal Pain Time Seen by Provider: 11:25 Travel History International Travel<30 days: No Contact w/Intl Traveler<30days: No Traveled to known affect area: No History of Present Illness HPI The patient was seen and examined in the presence of the nurse. This patient complains of abdominal pain. Location is epigastrium. She has history of pancreatitis and has had that 2 times. She says she has no idea why she gets pancreatitis. 7 days ago was admitted for alcohol-induced pancreatitis. She had drank 4 beers prior to that. She denies being an alcoholic or drinking heavily. She says that was a fluke. She has no gallbladder. Severity is moderate. She left AMA 5 days ago. Her pain has returned. Denies hematemesis or vomiting but has nausea. No alleviating factors. Symptoms exacerbated by alcohol PFSH Past Medical History Anxiety: Yes Depression: Yes Cancer: No Cardiovascular Problems: No Developmental Delay: No Diminished Hearing: No Gastrointestinal Disorders: Yes (PANCREATITIS) GERD: Yes Genitourinary: No Hiatal Hernia: Yes Musculoskeletal: Yes (CHRONIC BACK PAIN, HERNIATED DISC) Neurologic: No Psychiatric: Yes Reproductive: No Respiratory: No Pancreatitis: Yes Tetanus Vaccination: > 5 Years Influenza Vaccination: No ?: Not Past Surgical History Abdominal Surgery: Yes (GALL BLADDER REMOVAL) Cholecystectomy: Yes Hysterectomy: Yes Social History Alcohol Use: Yes (LAST WEEK) Tobacco Use: No (20 PACK YEARS ) Substance Use: No Allergies-Medications (Allergen,Severity, Reaction): Coded Allergies: codeine (Verified Allergy, Intermediate, Hives, 06/16/17) Reported Meds & Prescriptions Reported Meds & Active Scripts Active Zofran (Ondansetron HCl) 4 Mg Tab 4 Mg PO Q6HR PRN Oxycodone (Oxycodone HCl) 5 Mg Cap 5 Mg PO Q6H PRN Celexa (Citalopram Hydrobromide) 40 Mg Tab 40 Mg PO DAILY Zetia (Ezetimibe) 10 Mg Tab 10 Mg PO DAILY Reported Omeprazole 20 Mg Tab 20 Mg PO DAILY Review of Systems General / Constitutional: No: Fever Eyes: No: Visual changes HENT: No: Headaches Cardiovascular: No: Chest Pain or Discomfort Respiratory: No: Shortness of Breath Gastrointestinal: Positive: Nausea, Abdominal Pain Genitourinary: No: Dysuria Musculoskeletal: No: Pain Skin: No Rash Neurologic: No: Weakness Psychiatric: No: Depression Endocrine: No: Polydipsia Hematologic/Lymphatic: No: Easy Bruising Physical Exam Narrative GENERAL: Disheveled well-developed patient with abdominal pain . SKIN: Focused skin assessment reveals no rash and nodules. Skin is Warm and dry. HEAD: Atraumatic. Normocephalic. EYES: Pupils equal and round. No scleral icterus. No injection or drainage. ENT: No nasal bleeding or discharge. Mucous membranes pink and moist. NECK: Trachea midline. No JVD. CARDIOVASCULAR: Regular rate and rhythm. No murmur appreciated. RESPIRATORY: No accessory muscle use. Clear to auscultation. Breath sounds equal bilaterally. GASTROINTESTINAL: Abdomen soft, epigastrium is tender , nondistended. Hepatic and splenic margins not palpable. MUSCULOSKELETAL: No obvious deformities. No clubbing. No cyanosis. No edema. NEUROLOGICAL: Awake and alert. No obvious cranial nerve deficits. Motor grossly within normal limits. Normal speech. PSYCHIATRIC: Anxious mood and affect; insight and judgment seems weak . Data Data Last Documented VS Vital Signs Date Time Temp Pulse Resp B/P (MAP) Pulse Ox O2 Delivery O2 Flow Rate FiO2 06/16/17 11:51 80 18 143/98 (113) 99 Room Air 06/16/17 10:56 98.5 Orders Orders Complete Blood Count With Diff (06/16/17 11:31) Comprehensive Metabolic Panel (06/16/17 11:31) Lipase (06/16/17 11:31) Prothrombin Time / Inr (Pt) (06/16/17 11:31) Act Partial Throm Time (Ptt) (06/16/17 11:31) Iv Access Insert/Monitor (06/16/17 11:31) Ecg Monitoring (06/16/17 11:31) Oximetry (06/16/17 11:31) NPO (06/16/17 11:31) Morphine Inj (Morphine Inj) (06/16/17 11:45) Ondansetron Inj (Zofran Inj) (06/16/17 11:45) Sodium Chloride 0.9% Flush (Ns Flush) (06/16/17 11:45) Sodium Chlor 0.9% 1000 Ml Inj (Ns 1000 M (06/16/17 11:45) Ct Abd/Pel W Iv Contrast(Rout) (06/16/17 ) Alcohol (Ethanol) (06/16/17 11:33) Iohexol 350 Inj (Omnipaque 350 Inj) (06/16/17 12:01) Labs Laboratory Tests Test 06/16/17 11:30 White Blood Count 9.6 TH/MM3 Red Blood Count 4.25 MIL/MM3 Hemoglobin 13.7 GM/DL Hematocrit 39.0 % Mean Corpuscular Volume 91.7 FL Mean Corpuscular Hemoglobin 32.3 PG Mean Corpuscular Hemoglobin Concent 35.2 % Red Cell Distribution Width 12.8 % Platelet Count 349 TH/MM3 Mean Platelet Volume 7.1 FL Neutrophils (%) (Auto) 54.6 % Lymphocytes (%) (Auto) 30.1 % Monocytes (%) (Auto) 11.9 % Eosinophils (%) (Auto) 2.6 % Basophils (%) (Auto) 0.8 % Neutrophils # (Auto) 5.3 TH/MM3 Lymphocytes # (Auto) 2.9 TH/MM3 Monocytes # (Auto) 1.1 TH/MM3 Eosinophils # (Auto) 0.2 TH/MM3 Basophils # (Auto) 0.1 TH/MM3 CBC Comment DIFF FINAL Differential Comment Prothrombin Time 10.6 SEC Prothromb Time International Ratio 1.0 RATIO Activated Partial Thromboplast Time 20.3 SEC Blood Urea Nitrogen 13 MG/DL Creatinine 0.74 MG/DL Random Glucose 78 MG/DL Total Protein 8.6 GM/DL Albumin 3.9 GM/DL Calcium Level 9.4 MG/DL Alkaline Phosphatase 105 U/L Aspartate Amino Transf (AST/SGOT) 78 U/L Alanine Aminotransferase (ALT/SGPT) 63 U/L Total Bilirubin 0.5 MG/DL Sodium Level 133 MEQ/L Potassium Level 3.9 MEQ/L Chloride Level 97 MEQ/L Carbon Dioxide Level 26.4 MEQ/L Anion Gap 10 MEQ/L Estimat Glomerular Filtration Rate 81 ML/MIN Lipase 579 U/L Ethyl Alcohol Level LESS THAN 3 MG/DL MDM Medical Decision Making Medical Screen Exam Complete: Yes Emergency Medical Condition: Yes Medical Record Reviewed: Yes Differential Diagnosis Differential diagnosis includes pancreatitis, biliary colic, hepatitis, GERD, peptic ulcer disease. Narrative Course I have reviewed the patient's electronic medical record. Reviewed her admission from a week ago 1135: I evaluated the patient. I ordered workup I gave her IV fluid and 1 dose of morphine and Zofran for symptom relief 1230: Labs reviewed. Reasonably normal except for minor elevation of lipase in the 500s 1300: CT reviewed revealing mild inflammation around the body and tail of pancreas but no necrosis or other abnormal findings 1330: Reevaluated patient. She feels much improved. She is resting comfortably after morphine dose She has an acute mild pancreatitis but I don't feel requires inpatient hospitalization. She is agreeable and think she can do okay at home. They're liquid diet discussed and avoidance of alcohol I wrote her a dozen pain pills and a dozen nausea pills Diagnosis Primary Impression: Acute pancreatitis without necrosis or infection, unspecified Qualified Codes: K85.90 - Acute pancreatitis without necrosis or infection, unspecified Additional Instructions: The patient was advised to follow up with their physician and return if they worsen. I have recommended clear liquids for 24 hours, then gradually advance as tolerated. The patient was warned about potential sedation for the medications they will receive on prescription. Med/Other Pt SpecificInfo: Other Scripts Ondansetron (Zofran) 4 Mg Tab 4 MG PO Q6HR Y for NAUSEA OR VOMITING, #12 TAB 0 Refills Prov: Karri Mckinnon MD 06/16/17 Oxycodone (Oxycodone) 5 Mg Cap 5 MG PO Q6H Y for PAIN, #12 CAP 0 Refills Prov: Karri Mckinnon MD 06/16/17 Disposition: 01 DISCHARGE HOME Condition: Stable Karri Mckinnon MD Jun 16, 2017 11:37
[2017-06-16] MEDS ORDERED: SODIUM CHLOR 0.9% 1000 ML INJ 1,000 ML IV ONE (11:45)
[2017-06-16] MEDS ORDERED: SODIUM CHLORIDE 0.9% FLUSH 10 ML FLUSH IV FLUSH PRN (11:45)
[2017-06-16] MEDS ORDERED: ONDANSETRON HCL 4 MG/2 ML VIAL IVP ONE (11:45)
[2017-06-16] MEDS ORDERED: MORPHINE SULFATE 4 MG/ML INJ IV PUSH ONE (11:45)
[2017-06-16 11:51] VITALS: BP 143/98; PULSE 80; RESP 18; O2SAT 99
[2017-06-16 11:56] LABS: AUTOMATED NEUTROPHIL # 5.3 TH/MM3 (1.8-7.7); BASOPHIL # 0.1 TH/MM3 (0-0.2); BASOPHIL % 0.8 % (0.0-2.0); EOSINOPHIL # 0.2 TH/MM3 (0-0.4); EOSINOPHIL % 2.6 % (0.0-4.0); HEMOGLOBIN 13.7 GM/DL (11.6-15.3); LYMPH % 30.1 % (9.0-44.0); LYMPHOCYTE # 2.9 TH/MM3 (1.0-4.8); MEAN CELL VOLUME 91.7 FL (80.0-100.0); MEAN CORPUSCULAR HEMOGLOBIN 32.3 PG (27.0-34.0); MEAN CORPUSCULAR HGB CONC 35.2 % (32.0-36.0); MEAN PLATELET VOLUME 7.1 FL (7.0-11.0); MONO % 11.9 % (0.0-8.0); MONOCYTE # 1.1 TH/MM3 (0-0.9); NEUT % 54.6 % (16.0-70.0); PLATELET COUNT 349 TH/MM3 (150-450); RED BLOOD COUNT 4.25 MIL/MM3 (4.00-5.30); RED CELL DISTRIBUTION WIDTH 12.8 % (11.6-17.2); WHITE BLOOD COUNT 9.6 TH/MM3 (4.0-11.0)
[2017-06-16] MEDS ORDERED: IOHEXOL 350 MG/ML 10 ML VIAL (for RAD DIAG) IVCONTRAST ONE (12:01)
[2017-06-16 12:06] LABS: PROTHROMBIN TIME - PATIENT 10.6 SEC (9.8-11.6)
[2017-06-16 12:15] LABS: ALKALINE PHOSPHATASE 105 U/L (45-117); TOTAL BILIRUBIN ADULT 0.5 MG/DL (0.2-1.0); TOTAL PROTEIN 8.6 GM/DL (6.4-8.2)
--- NOTE | 2017-06-16 12:15 | RADRPT ---
EXAM DATE/TIME: 06/16/2017 11:56 [facility] COMPARISON: No previous studies available for comparison. INDICATIONS : Upper abdominal pain since last week, worsening today. IV CONTRAST: 92 cc Omnipaque 350 (iohexol) IV ORAL CONTRAST: No oral contrast ingested. RADIATION DOSE: 15.24 CTDIvol (mGy) MEDICAL HISTORY : Pancreatitis. Hernia, hiatal. Gastroesophageal reflux disease. SURGICAL HISTORY : Cholecystectomy. Hysterectomy. ENCOUNTER: Initial ACUITY: 3 days PAIN SCALE: 10/10 LOCATION: upper abdomen TECHNIQUE: Volumetric scanning of the abdomen and pelvis was performed. Using automated exposure control and ad justment of the mA and/or kV according to patient size, radiation dose was kept as low as reasonably achievable to obtain optimal diagnostic quality images. DICOM format image data is available electro nically for review and comparison. FINDINGS: LOWER LUNGS: The visualized lower lungs are clear. There is trace left pleural fluid. LIVER: Diffuse decreased density without lesion. There is no dilation of the biliary tree. Gallbladder is absent. SPLEEN: Normal size without lesion. PANCREAS: There are inflammatory changes surrounding the distal body and tail of the pancreas. There is no panc reatic duct dilatation. No calcifications are present. KIDNEYS: Normal in size and shape. There is no mass, stone or hydronephrosis. ADRENAL GLANDS: Within normal limits. VASCULAR: There is no aortic aneurysm. There is mild atherosclerotic disease. BOWEL/MESENTERY: The stomach, small bowel, and colon demonstrate no acute abnormality. There is no free intraperitone al air or fluid. Moderate size hiatal hernia is present. ABDOMINAL WALL: Within normal limits. RETROPERITONEUM: There is no lymphadenopathy. BLADDER: No wall thickening or mass. REPRODUCTIVE: Uterus is absent. INGUINAL: There is no lymphadenopathy or hernia. MUSCULOSKELETAL: There are degenerative changes of the lumbar spine. CONCLUSION: 1. Mild inflammatory changes surrounding the distal body and tail of the pancreas, suspicious for acu te pancreatitis. There are no pancreatitis associated complications and no pancreatic necrosis is see n. 2. Nonacute findings include hepatic steatosis, moderate size hiatal hernia, trace left pleural fluid , and mild atherosclerotic disease. Anil Major MD on June 16, 2017 at 12:07 Board Certified Radiologist. This report was verified electronically.
[2017-06-16 12:22] LABS: ALBUMIN 3.9 GM/DL (3.4-5.0); ALT (GPT) 63 U/L (10-53); AST (GOT) 78 U/L (15-37); BICARBONATE 26.4 MEQ/L (21.0-32.0); BLOOD UREA NITROGEN 13 MG/DL (7-18); CALCIUM 9.4 MG/DL (8.5-10.1); CHLORIDE 97 MEQ/L (98-107); CREATININE 0.74 MG/DL (0.50-1.00); GLOMERULAR FILTRATION RATE 81 ML/MIN (>89); GLUCOSE,RANDOM 78 MG/DL (74-106); SODIUM (NA) 133 MEQ/L (136-145)
[2017-06-16] MEDS ORDERED: ZOFR4TAB PO (13:35)
[2017-06-16] MEDS ORDERED: OXYC1CAP PO (13:35)
== END 2017-06-16 14:08 | disposition home or self-care (01) ==
LOC: NEPC 10:55
DX: K85.90 Acute pancreatitis without necrosis or infection, unspecified (principal); F32.9 Major depressive disorder, single episode, unspecified; Z88.5 Allergy status to narcotic agent
CPT/HCPCS: 74177; 80053; 80307; 83690; 85025; 85610; 85730; 96374; 96375; 99285; J2270; J2405; J7030; Q9967

== ENCOUNTER 2017-10-11 16:43 | Emergency (ER) | payer MEDICARE ==
[~2017-10-11] VITALS: Ht 172.7 cm; Wt 87.0 kg
[~2017-10-11 16:43] MED LIST changes: +OMEP20TA93 PO; +OXYC1CAP PO; +ZOFR4TAB PO; -guaiFENesin ER PO
[2017-10-11 16:45] VITALS: BP 146/96; PULSE 91; RESP 17; TEMP 99; O2SAT 98
--- NOTE | 2017-10-11 16:58 | PD ---
HPI Chief Complaint: Injury Time Seen by Provider: 16:51 Travel History International Travel<30 days: No Contact w/Intl Traveler<30days: No Traveled to known affect area: No History of Present Illness HPI Patient comes emergency department complaining of left third toe pain that began 2 days ago after dropping part of an aluminum umbrella on it. Patient reports cleaning toe with peroxide. Patient reports she tried taping however got stuff stuck to the toe so she quit doing this. Patient reports pain is worse with walking. Denies any radiation pain. Patient describes pain as throbbing aching like in nature. Denies any fevers or other known injury. Patient reports she is on hydrocodone for chronic back pain. PFSH Past Medical History Anxiety: Yes Depression: Yes Cancer: No Cardiovascular Problems: No Developmental Delay: No Diminished Hearing: No Gastrointestinal Disorders: Yes (PANCREATITIS) GERD: Yes Genitourinary: No Hiatal Hernia: Yes Musculoskeletal: Yes (CHRONIC BACK PAIN, HERNIATED DISC) Neurologic: No Psychiatric: Yes Reproductive: No Respiratory: No Pancreatitis: Yes ?: Not Past Surgical History Abdominal Surgery: Yes (GALL BLADDER REMOVAL) Cholecystectomy: Yes Hysterectomy: Yes Social History Alcohol Use: Yes (LAST WEEK) Tobacco Use: No (20 PACK YEARS ) Substance Use: No Allergies-Medications (Allergen,Severity, Reaction): Coded Allergies: codeine (Verified Allergy, Intermediate, Hives, 10/11/17) Reported Meds & Prescriptions Reported Meds & Active Scripts Active Keflex (Cephalexin) 500 Mg Cap 500 Mg PO Q8H Zofran (Ondansetron HCl) 4 Mg Tab 4 Mg PO Q6HR PRN Oxycodone (Oxycodone HCl) 5 Mg Cap 5 Mg PO Q6H PRN Celexa (Citalopram Hydrobromide) 40 Mg Tab 40 Mg PO DAILY Zetia (Ezetimibe) 10 Mg Tab 10 Mg PO DAILY Reported Omeprazole 20 Mg Tab 20 Mg PO DAILY Review of Systems Except as stated in HPI: all other systems reviewed are Neg Physical Exam Narrative GENERAL: Well-developed, overly nourished, in no acute distress, and non-ill appearing. SKIN: Focused skin assessment warm and dry. HEAD: Atraumatic. Normocephalic. EYES: Pupils equal and round. EOMI. No scleral icterus. No injection or drainage. ENT: No nasal bleeding or discharge. Mucous membranes pink and moist. NECK: Trachea midline. Supple. No nuclear rigidity. CARDIOVASCULAR: Capillary refill less than 2 seconds. RESPIRATORY: No accessory muscle use. No respiratory distress. MUSCULOSKELETAL: No obvious deformities. No clubbing. No cyanosis. No edema. Full range of motion. Patient reports tenderness to palpation over distal phalanx left third toe. There is ecchymosis and soft tissue swelling noted. Toenail was split in half diagonally. Is afebrile, without crepitus, and without drainage. Neurovascular intact. NEUROLOGICAL: Awake and alert. No obvious cranial nerve deficits. Motor grossly within normal limits. Normal speech. PSYCHIATRIC: Appropriate mood and affect; insight and judgment normal. Data Data Last Documented VS Vital Signs Date Time Temp Pulse Resp B/P (MAP) Pulse Ox O2 Delivery O2 Flow Rate FiO2 10/11/17 17:23 18 98 Room Air 10/11/17 16:45 99.0 91 146/96 (113) Orders Orders Toe (Min 2vws) (10/11/17 ) Ed Discharge Order (10/11/17 17:26) Splint Or Brace Apply/Monitor (10/11/17 17:26) [employer] Request For Service (10/11/17 17:26) [facility] Medical Decision Making Medical Screen Exam Complete: Yes Emergency Medical Condition: Yes Interpretation(s) Last Impressions Toe X-Ray 10/11/17 0000 Signed Impressions: CONCLUSION: Fracture terminal tuft left third toe. Differential Diagnosis Fracture, sprain, contusion, dislocation Narrative Course The patient sustained a fracture of the toe. The distally appears neurovascularly intact, without evidence of neurovascular injury nor compartment syndrome. Tendon exam also was intact. The effected toe was splinted. The patient was discharged with fracture and splint care instructions and given warnings for vascular compromise. The patient is to follow up with pharmacognosy teacher. The patient agrees with plan. Patient in no obvious distress upon re-evaluation. All pertinent Radiology result(s) discussed with patient. Patient was asked if they wanted to speak to my attending, which the patient did not wish to do at this time. Any questions/ concerns in reference to patient diagnosis/condition discussed and clarified prior to patient's discharge. Reinforced sheer importance of close follow up with pharmacognosy teacher. Instructed patient to return to ED immediately, if symptoms return/worsen. Patient showed understanding of above instructions. Further instructions and recommendations were detailed in discharge paperwork. Patient ambulated without difficulty out of ED at discharge. Diagnosis Primary Impression: Open fracture of toe of left foot Qualified Codes: S92.525B - Nondisplaced fracture of middle phalanx of left lesser toe(s), initial encounter for open fracture Referrals: Joyce Queen DPM Patient Instructions: General Instructions, Toe Fracture (ED) Additional Instructions: Follow-up with pharmacognosy teacher this week for reevaluation. Take all medication as prescribed. Simon tape toe and wear postop shoe until reevaluated. Apply ice to affected toe 10-20 minutes per hour as needed for pain and swelling. Elevate affected toe crease pain and swelling. Keep area dry and clean as possible using soap and water. Return to the emergency department if symptoms get worse. Med/Other Pt SpecificInfo: Prescription(s) given Scripts Cephalexin (Keflex) 500 Mg Cap 500 MG PO Q8H for Infection, #30 CAP 0 Refills Prov: Cortney Adan MD 10/11/17 Disposition: 01 DISCHARGE HOME Condition: Stable Silvino George Oct 11, 2017 16:58
--- NOTE | 2017-10-11 17:24 | RADRPT ---
EXAM DATE: 10/11/2017 5:17 PM EDT AGE/SEX: 57 years / Female INDICATIONS: Heavy object fell on 3rd toe left foot. Pain and swelling. CLINICAL DATA: This is the patient's initial encounter. Patient reports that signs and symptoms have been present for 1 day and indicates a pain score of 8/10. MEDICAL/SURGICAL HISTORY: None. None. COMPARISON: No prior exams available for comparison. FINDINGS: There is a fracture of the terminal tuft of the left third toe. No dislocation. No other fractures ar e seen. CONCLUSION: Fracture terminal tuft left third toe. Electronically signed by: Pablo Kwan MD 10/11/2017 5:23 PM EDT
[2017-10-11] MEDS ORDERED: CEPH-460 PO (17:26)
[2017-10-11 18:21] VITALS: BP 148/87
== END 2017-10-11 18:23 | disposition home or self-care (01) ==
LOC: PHEFT 16:43
DX: S92.502A Displaced unspecified fracture of left lesser toe(s), initial encounter for closed fracture (principal); F41.9 Anxiety disorder, unspecified; F32.9 Major depressive disorder, single episode, unspecified; K21.9 Gastro-esophageal reflux disease without esophagitis; Z88.5 Allergy status to narcotic agent; Z79.899 Other long term (current) drug therapy; Z87.19 Personal history of other diseases of the digestive system; W22.8XXA Striking against or struck by other objects, initial encounter
CPT/HCPCS: 73660; 99283; L3260

== ENCOUNTER 2018-02-05 20:29 | Inpatient (IN) ==
[2018-02-05] MEDS ORDERED: Sod Chloride 0.9% Inj 1,000 ML IV.SIG ONE (20:58)
[2018-02-05] MEDS ORDERED: Ketorolac Inj 30 MG/ML (IVP) Vial IV.PUSH ONE (20:58)
[2018-02-05] MEDS ORDERED: Famotidine PF Inj 20 MG/2 ML Vial IV.PUSH ONE (20:58)
[2018-02-05] MEDS ORDERED: Morphine Inj 4 MG/ML Vial IV.PUSH ONE ×2 (20:58→21:45)
--- NOTE | 2018-02-05 21:05 | ED ---
HPI General Chief Complaint: Abdominal Pain Stated Complaint: Pancreatitis Flare Up Time Seen by Provider: 02/05/18 20:44 Source: patient Mode of arrival: ambulatory Limitations: no limitations History of Present Illness HPI narrative: The patient is a 57-year-old female who presents to the emergency department for abdominal pain. The patient developed abdominal pain earlier today that is epigastric, radiates to the back, sharp, stabbing, and associated with nausea and vomiting. The patient has a history of similar symptoms in the past secondary to pancreatitis from alcohol use. The patient's last drink of alcohol was several days ago. The patient does note a previous cholecystectomy in hysterectomy. She recently was treated for UTI. She denies any history of diabetes. She denies any fever, chills, or sweats. Symptoms are moderate, there are no current alleviating factors, possibly exacerbated by drinking alcohol. MD complaint: Reports abdominal pain Onset (ago): hour(s) Pain Consistency: constant Location: Reports epigastric Severity: moderate Severity scale (1-10): 7 Quality: Reports stabbing and sharp Radiation: Reports back Migration to: Reports no migration Relieving factors: nothing Exacerbating factors: other Context: Reports history of similar episodes Associated symptoms: Reports nausea and vomiting Related Data Patient : No Home Medications Medication Instructions Recorded Confirmed alprazolam [Xanax] 1 mg PO BID PRN 02/05/18 02/05/18 citalopram 40 mg PO DAILY 02/05/18 02/05/18 hydrocodone-acetaminophen 1 tab PO Q6H PRN 02/05/18 02/05/18 omeprazole 40 mg PO DAILY 02/05/18 02/05/18 Allergies Allergy/AdvReac Type Severity Reaction Status Date / Time codeine Allergy Intermediate Hives Verified 02/05/18 20:41 Review of Systems ROS: all other systems reviewed are negative PMFSH Social History Social History Substance History: No History of Abuse Second Hand Smoke Exposure: No Smoking Status: Former smoker Tobacco Type: Cigarettes How Often Do You Have a Drink Containing Alcohol: Monthly or less Recent Travel in [facility] within the Last 8 Weeks: No Recent Out of Country Travel within the Last 8 Weeks: No Exam Narrative Exam Narrative: GENERAL: Awake, alert, pleasant 57-year-old female who appears her stated age and is in no acute respiratory distress. SKIN: Focused skin assessment warm/dry. Multiple tattoos noted per HEAD: Atraumatic. Normocephalic. EYES: Pupils equal and round. No scleral icterus. No injection or drainage. ENT: No nasal bleeding or discharge. Dry mucous members. NECK: Trachea midline. No JVD. CARDIOVASCULAR: Regular rate and rhythm. No murmur appreciated. RESPIRATORY: No accessory muscle use. Clear to auscultation. Breath sounds equal bilaterally. GASTROINTESTINAL: Abdomen soft, tender to palpation epigastrium. No guarding rigidity. MUSCULOSKELETAL: No obvious deformities. No clubbing. No cyanosis. No edema. NEUROLOGICAL: Awake and alert. No obvious cranial nerve deficits. Motor grossly within normal limits. Normal speech. PSYCHIATRIC: Appropriate mood and affect; insight and judgment normal. Course Initial Documented Vital Signs Temperature 97.8 F 02/05/18 20:30 Pulse Rate 74 02/05/18 20:30 Respiratory Rate 20 02/05/18 20:30 Blood Pressure 189/96 H 02/05/18 20:30 Pulse Oximetry 98 02/05/18 20:30 Last Documented Vital Signs Temperature 97.8 F 02/05/18 20:30 Pulse Rate 74 02/05/18 20:30 Respiratory Rate 18 02/05/18 21:50 Blood Pressure 189/96 H 02/05/18 20:30 Pulse Oximetry 98 02/05/18 20:30 Medical Decision Making MDM Narrative Medical decision making narrative: IV was established, labs are drawn and sent, and the patient was placed on cardiac telemetry monitoring and continuous pulse oximetry monitoring. EKG was ordered and interpreted. The patient was administered morphine, Toradol, Zofran, Pepcid, and IV fluids. The patient's lipase level was greater than 3000, AST and ALT are mildly elevated, I doubt retained biliary stent with previous history of cholecystectomy and normal bilirubin level. As the patient's level is greater than 3000 she will be admitted to the on-call medical service for pain management, may benefit from early diet and hydration. Patient is advised not to drink alcohol as this most likely is the precipitant of her pancreatitis. I discussed the patient with Dr. Wilkinson who agrees with admission. Medical Screen Exam Complete: Yes Emergency Medical Condition: Yes Differential Diagnosis Differential Diagnosis: Differential diagnosis includes acute pancreatitis, chronic pancreatitis, gastritis, peptic ulcer disease, retained biliary stone, choledocholithiasis, alcohol abuse. Lab Data Lab results narrative: Lipase level 3541 Result diagrams: 02/05/18 21:00 02/05/18 21:00 Lab Results 02/05/18 02/05/18 Range/Units 21:00 21:00 CBC w Diff Auto diff final WBC 6.4 (4.0-11.0) th/mm3 RBC 4.78 (4.00-5.30) mil/mm3 Hgb 15.0 (11.6-15.3) gm/dL Hct 43.9 (35.0-46.0) % MCV 91.7 (80.0-100.0) fL MCH 31.3 (27.0-34.0) pg MCHC 34.1 (32.0-36.0) % RDW 12.4 (11.6-17.2) % Plt Count 241 (150-450) th/mm3 MPV 7.3 (7.0-11.0) fL Neut % (Auto) 73.2 H (16.0-70.0) % Lymph % (Auto) 18.6 (9.0-44.0) % [place] % (Auto) 7.0 (0.0-8.0) % Eos % (Auto) 0.1 (0.0-4.0) % Baso % (Auto) 1.1 (0.0-2.0) % Neut # (Auto) 4.6 (1.8-7.7) th/mm3 Lymph # (Auto) 1.2 (1.0-4.8) th/mm3 [place] # (Auto) 0.4 (0.0-0.9) th/mm3 Eos # (Auto) 0.0 (0.0-0.4) th/mm3 Baso # (Auto) 0.1 (0.0-0.2) th/mm3 WBC Differential . Differential Comment . Sodium 135 L (136-145) meq/L Potassium 3.4 L (3.5-5.1) meq/L Chloride 99 (98-107) meq/L Carbon Dioxide 23.4 (21.0-32.0) meq/L Anion Gap 13 (5-15) meq/L BUN 15 (7-18) mg/dL Creatinine 0.64 (0.50-1.00) mg/dL Estimated GFR Greater than 89 (>89) mL/min Random Glucose 176 H (74-106) mg/dL Calcium 8.4 L (8.5-10.1) mg/dL Total Bilirubin 0.9 (0.2-1.0) mg/dL AST 177 H (15-37) U/L ALT 124 H (10-53) U/L Alkaline Phosphatase 110 (45-117) U/L Total Creatine Kinase 89 (26-192) U/L Troponin I Less than 0.02 L (0.02-0.05) ng/mL Total Protein 8.0 (6.4-8.2) g/dL Albumin 4.2 (3.4-5.0) g/dL Lipase 3541 H (73-393) U/L ECG Data EKG Prior to Arrival: No Attestation: I personally reviewed and interpreted this ECG as follows: Interpretation: EKG reveals normal sinus rhythm with a rate of 63. Moderate intraventricular conduction delay, QRS 121 ms. Inverted T wave noted in lead III. Discharge Plan Discharge Disposition Patient Disposition: 30 Still Patient Discharge Condition Condition: Stable Discharge Details Diagnosis: Pancreatitis Physicians Team ED Provider: Mathieu Barros Primary Care Provider: Primary Care So Meyer Rxs /Orders / Referrals /Forms Prescriptions: No Action citalopram 40 mg Tablet 40 mg PO DAILY RF: 0 alprazolam [Xanax] 1 mg Tablet 1 mg PO BID PRN (Reason: Anxiety) RF: 0 hydrocodone-acetaminophen 10-325 mg Tablet 1 tab PO Q6H PRN (Reason: Pain) RF: 0 omeprazole 40 mg Capsule,Delayed Release(Dr/Ec) 40 mg PO DAILY RF: 0 Status ED Status: Pending Admission
[2018-02-05 21:29] LABS: Baso # (Auto) 0.1 th/mm3 (0.0-0.2); Baso % (Auto) 1.1 % (0.0-2.0); Eos % (Auto) 0.1 % (0.0-4.0); Hematocrit 43.9 % (35.0-46.0); Lymph # (Auto) 1.2 th/mm3 (1.0-4.8); Lymph % (Auto) 18.6 % (9.0-44.0); Mean Corpuscular HGB Conc 34.1 % (32.0-36.0); Mean Corpuscular Hemoglobin 31.3 pg (27.0-34.0); Mean Corpuscular Volume 91.7 fL (80.0-100.0); Mean Platelet Volume 7.3 fL (7.0-11.0); Mono # (Auto) 0.4 th/mm3 (0.0-0.9); Neut # (Auto) 4.6 th/mm3 (1.8-7.7); Neut % (Auto) 73.2 % (16.0-70.0); Platelet Count 241 th/mm3 (150-450); Red Blood Count 4.78 mil/mm3 (4.00-5.30); Red Cell Distribution Width 12.4 % (11.6-17.2); White Blood Count 6.4 th/mm3 (4.0-11.0)
[2018-02-05 21:34] LABS: Chloride 99 meq/L (98-107); Potassium 3.4 meq/L (3.5-5.1); Sodium 135 meq/L (136-145)
[2018-02-05 21:37] LABS: Calcium 8.4 mg/dL (8.5-10.1)
[2018-02-05 21:38] LABS: Albumin 4.2 g/dL (3.4-5.0); Anion Gap 13 meq/L (5-15); Blood Urea Nitrogen 15 mg/dL (7-18); Carbon Dioxide 23.4 meq/L (21.0-32.0); Glucose,Random 176 mg/dL (74-106)
[2018-02-05 21:41] LABS: Alanine Aminotransferase 124 U/L (10-53); Aspartate Aminotransferase 177 U/L (15-37); Glomerular Filtration Rate Greater Than 89 mL/min (>89)
[2018-02-05 21:43] LABS: Alkaline Phosphatase 110 U/L (45-117); Lipase 3541 U/L (73-393)
[2018-02-05 21:50] LABS: Creatine Kinase 89 U/L (26-192)
[2018-02-05] MEDS ORDERED: Acetaminophen 325 MG Tablet PO PRN (22:12)
[2018-02-05] MEDS ORDERED: Bisacodyl 10 MG Supp RECTAL PRN (22:12)
[2018-02-05] MEDS ORDERED: LORazepam 1 MG Tablet PO PRN (22:13)
[2018-02-05] MEDS ORDERED: Haloperidol Inj 5 MG/ML Ampul IV.PUSH PRN (22:13)
[2018-02-05] MEDS: Sod Chloride 0.9% Inj 1,000 ML IV.CONT SCH (22:36)
[2018-02-06] MEDS ORDERED: HYDROmorphone PF Inj 2 MG/ML Vial IV.PUSH ONE (00:42)
[2018-02-06] MEDS: Ketorolac Inj 30 MG/ML (IVP) Vial IV.PUSH PRN ×3 (02:58→17:55)
[2018-02-06] MEDS ORDERED: Morphine Inj 4 MG/ML Vial IV.PUSH PRN (03:13)
[2018-02-06 04:43] LABS: Bilirubin,Urine Negative (Negative); Clarity,Urine Clear (Clear); Color,Urine Yellow (Yellw/Straw); Glucose,Urine (UA) Negative (Negative); Leukocyte Esterase,Urine Negative (Negative); Nitrite,Urine Negative (Negative); PH,Urine 5.5 (5.0-8.5); Specific Gravity,Urine Greater/Equal 1.030 (1.002-1.035); Urobilinogen,Urine 0.2 mg/dL (Less than 2)
[2018-02-06 04:52] LABS: Mucus,Urine Few /lpf (Occasional); RBC,Urine 0-3 /hpf (0-3); Squamous Epithelial Cell,Urine 0-5 /hpf (0-5); WBC,Urine 0-5 /hpf (0-5)
[2018-02-06] MEDS: Pantoprazole Inj 40 MG Vial IV.PUSH SCH ×2 (08:29→20:30)
[2018-02-06] MEDS: Folic Acid 1 MG Tablet PO SCH (08:30)
[2018-02-06] MEDS: Senna/Docusate Sodium 8.6/50 MG Tablet PO SCH ×2 (08:30→20:30)
[2018-02-06 08:32] LABS: Chloride 101 meq/L (98-107); Potassium 3.4 meq/L (3.5-5.1); Sodium 136 meq/L (136-145)
[2018-02-06 08:43] LABS: Baso # (Auto) 0.1 th/mm3 (0.0-0.2); Eos % (Auto) 0.3 % (0.0-4.0); Hematocrit 43.2 % (35.0-46.0); Hemoglobin 14.8 gm/dL (11.6-15.3); Lymph # (Auto) 2.2 th/mm3 (1.0-4.8); Lymph % (Auto) 22.2 % (9.0-44.0); Mean Corpuscular HGB Conc 34.3 % (32.0-36.0); Mean Corpuscular Hemoglobin 31.2 pg (27.0-34.0); Mean Corpuscular Volume 91.1 fL (80.0-100.0); Mean Platelet Volume 7.8 fL (7.0-11.0); Mono # (Auto) 0.9 th/mm3 (0.0-0.9); Mono % (Auto) 9.2 % (0.0-8.0); Neut # (Auto) 6.9 th/mm3 (1.8-7.7); Neut % (Auto) 67.3 % (16.0-70.0); Platelet Count 214 th/mm3 (150-450); Red Blood Count 4.74 mil/mm3 (4.00-5.30); Red Cell Distribution Width 12.8 % (11.6-17.2); White Blood Count 10.1 th/mm3 (4.0-11.0)
[2018-02-06 08:46] LABS: Alanine Aminotransferase 101 U/L (10-53); Albumin 3.8 g/dL (3.4-5.0); Alkaline Phosphatase 103 U/L (45-117); Anion Gap 12 meq/L (5-15); Aspartate Aminotransferase 122 U/L (15-37); Blood Urea Nitrogen 14 mg/dL (7-18); Calcium 7.5 mg/dL (8.5-10.1); Carbon Dioxide 22.7 meq/L (21.0-32.0); Glomerular Filtration Rate Greater Than 89 mL/min (>89); Glucose,Random 101 mg/dL (74-106); Lipase 4494 U/L (73-393); Total Protein 7.1 g/dL (6.4-8.2)
[2018-02-06] MEDS ORDERED: Diatrizoate Meglum/Diatrizoate Sod Liq 9 ML UDC PO ONE (09:30)
--- NOTE | 2018-02-06 09:39 | P.HP ---
History of Present Illness Primary Care Physician: No Primary Care Physician Chief Complaint: Abdominal pain History of Present Illness: This is a 57-year-old female patient with a known medical history of chronic back pain, anxiety, GERD, and previous history of pancreatitis who presented to the ED with complaints of abdominal pain. Patient states that her symptoms started in the afternoon on Thursday, were mild in nature and intermittent. She states she took some Pepto-Bismol and attempted to treat the pain herself. She initially related the pain to her GERD. Over the course of the past few days her pain had worsened, she has been unable to eat or drink much over the past couple days. She does admit to nausea and vomiting all day yesterday. She denies any recent fevers, chills, headache, chest pain, dysuria. She does admit to drinking alcohol on Thursday evening, which he believes may have triggered these symptoms. Patient states she does not drink alcohol but maybe once a week. She does have a history of pancreatitis, being hospitalized one time in June for this cause. She did undergo an EGD and colonoscopy roughly a year ago which was reportedly negative. Patient has been following with Dr. Palmer, last seen 4 months ago with no changes to her medications. Patient denies any recent NSAID use. Denies any black or bloody stools. At the time of assessment patient is complaining of continued pain, the pain has continued despite use of pain medications. Her lipase is over 3000 as well as transaminitis noted. Patient's abdomen is distended and bowel sounds are quite minimal. A CT of the abdomen has been ordered. Pain medications ordered as well. It should be noted that patient was recently treated for a UTI and has finished her course of antibiotics. - Diagnosis (1) Pancreatitis Inpatient Certification: I certify that the inpatient services were ordered in accordance with Medicare regulations governing the order. This includes certification that hospital inpatient services are reasonable and necessary and in the case of services not specified as inpatient-only under 42 CFR 419.22(n), that they are appropriately provided as inpatient services in accordance to with the 2-midnight benchmark under 43 CFR 412.3(e) Estimated Total Length of Stay (Days): 2 Plans for Post Hospital Care: Not yet determined Review of Systems All other systems reviewed negative except as stated in [facility] - History History Provided By: Patient - Medical History Medical History: Medical History (Last Updated 02/06/18 @ 12:01 by Joyce Kendrick) Chronic back pain - Surgical History Surgical History: Surgical History (Last Updated 02/06/18 @ 12:03 by Joyce Kendrick) History of toe surgery Hx of cholecystectomy - Family History Family History: Family History (Last Updated 02/06/18 @ 12:00 by Joyce Kendrick) Mother Cancer - Tobacco History Second Hand Smoke Exposure: No Tobacco Use In Past 30 Days: No Smoking Status: Never smoker Tobacco Type: Cigarettes - Alcohol History How Often Do You Have a Drink Containing Alcohol: 2 to 3 times a week - Substance Use History Substance History: Past History - Substance Use Type Alcohol Status: Active Route Used: By Mouth Reason for Use: Fit In - Travel History Recent Travel in the [place] Within the Last 8 Weeks: No Recent Travel Out of the Country Within the Last 8 Weeks: No - Immunization History Tetanus Immunization: Unable to Assess Hx Influenza Vaccine This Season: No Medications and Allergies Active Medications: Active Medications Acetaminophen (Tylenol) 650 mg PO Q4H PRN PRN Reason: Temp > 100.4 Al Hydroxide/Mg Hydroxide (Milk Of Jay Jay Fournier) 30 ml PO Q12H PRN PRN Reason: Mild Constipation Alprazolam (Xanax) 1 mg PO BID PRN PRN Reason: Anxiety Last Admin: 02/06/18 08:30 Dose: 1 mg Bisacodyl (Dulcolax Supp) 10 mg RECTAL DAILY PRN PRN Reason: SEVERE CONSITIPATION Flumazenil (Romazecon Inj) 0.2 mg IV.PUSH Q1M PRN PRN Reason: OVERSEDATION Folic Acid (Folic Acid) 1 mg PO DAILY [facility] Stop: 02/11/18 08:59 Last Admin: 02/06/18 08:30 Dose: 1 mg Haloperidol Lactate (Haldol Inj) 1 mg IV.PUSH Q15M PRN PRN Reason: for severe agitation Hydromorphone HCl (Dilaudid Pf Inj) 0.5 mg IV.PUSH Q4H PRN PRN Reason: PAIN SCALE 1 TO 10 Sodium Chloride (Ns Inj) 1,000 mls @ 100 mls/hr IV.CONT .Q10H LUPE Last Infusion: 02/06/18 05:07 Dose: 100 mls/hr Ketorolac Tromethamine (Toradol Inj) 15 mg IV.PUSH Q6H PRN PRN Reason: PAIN 1-10 Stop: 02/11/18 00:41 Last Admin: 02/06/18 08:29 Dose: 15 mg Lactulose (Lactulose Liq) 30 ml PO DAILY PRN PRN Reason: SEVERE CONSITIPATION Lorazepam (Ativan) 1 mg PO Q4H PRN PRN Reason: for CIWA 8-10 Lorazepam (Ativan) 2 mg PO Q2H PRN PRN Reason: for CIWA 11-14 Lorazepam (Ativan Inj) 2 mg IV.PUSH Q2H PRN PRN Reason: for CIWA 11-14 Lorazepam (Ativan Inj) 2 mg IV.PUSH Q1H PRN PRN Reason: for CIWA 15-20 Lorazepam (Ativan Inj) 2 mg IV.PUSH Q15M PRN PRN Reason: for CIWA > 20 Lorazepam (Ativan Inj) 1 mg IV.PUSH Q4H PRN PRN Reason: for CIWA 8-10 Last Admin: 02/06/18 03:04 Dose: 1 mg Multivitamins/Minerals (Theragran-M) 1 tab PO DAILY [facility] Stop: 02/11/18 08:59 Ondansetron HCl (Zofran Inj) 4 mg IV.PUSH Q6H PRN PRN Reason: NAUSEA OR VOMITING Pantoprazole Sodium (Protonix Inj) 40 mg IV.PUSH Q12H [facility] Last Admin: 02/06/18 08:29 Dose: 40 mg Senna/Docusate Sodium (Criss-Colace) 1 tab PO BID [facility] Last Admin: 02/06/18 08:30 Dose: 1 tab Sennosides (Senokot) 17.2 mg PO Q12H PRN PRN Reason: Moderate Constipation Sodium Chloride (Ns Flush) 2 ml IV.FLUSH PRN PRN PRN Reason: FLUSH AFTER USING IV ACCESS Thiamine HCl (Vitamin B1) 100 mg PO DAILY [facility] Allergies Allergy/AdvReac Type Severity Reaction Status Date / Time codeine Allergy Intermediate Hives Verified 02/05/18 20:41 Home Medications Medication Instructions Recorded Confirmed Type alprazolam [Xanax] 1 mg PO BID PRN 02/05/18 02/05/18 History citalopram 40 mg PO DAILY 02/05/18 02/05/18 History hydrocodone-acetaminophen 1 tab PO Q6H PRN 02/05/18 02/05/18 History omeprazole 40 mg PO DAILY 02/05/18 02/05/18 History Exam Vital signs: Vital Signs 02/05/18 20:30 02/05/18 21:30 02/05/18 21:50 Temperature 97.8 F Pulse Rate 74 77 Respiratory Rate 20 16 18 Blood Pressure 189/96 H 178/82 H Pulse Oximetry 98 99 02/05/18 23:01 02/05/18 23:54 02/06/18 01:34 Temperature 97.6 F 98.4 F Pulse Rate 61 75 Respiratory Rate 20 20 22 Blood Pressure 211/105 H 165/108 H Pulse Oximetry 97 94 L 02/06/18 04:34 02/06/18 08:00 Temperature 98.4 F Pulse Rate 75 84 Respiratory Rate 18 18 Blood Pressure 170/109 H 184/93 H Pulse Oximetry 96 96 Intake & Output 02/05/18 02/06/18 02/06/18 18:59 06:59 18:59 Intake Total 1600 / 1600 Output Total 300 / 300 Balance 1300 / 1300 Weight 86.5 kg Intake: IV 1600 / 1600 NS Inj 1,000 ML @ 100 mls/hr IV 600 / 600 .CONT .Q10H LUPE Rx#:[id number] NS Inj 1,000 ML @ Wide Open IV. 1000 / 1000 SIG BOLUS ONE Rx#:[id number] Oral 0 / 0 Output: Urine 300 / 300 Other: Date of Last Bowel Movement 02/05/18 Weight On Admission 86.4 kg Narrative: GENERAL: Well-developed, well-nourished patient with apparent abdominal pain. SKIN: Warm and dry. No rash. HEAD: Normocephalic. Atraumatic. EYES: Pupils equal and round. No scleral icterus. No injection or drainage. ENT: No nasal bleeding or discharge. Mucous membranes pink and moist. NECK: Supple. Trachea midline. CARDIOVASCULAR: Regular rate and rhythm. S1, S2 noted. No murmur appreciated. RESPIRATORY: No accessory muscle use. Clear to auscultation. Breath sounds equal bilaterally. GASTROINTESTINAL: Abdomen round and firm. Hypoactive bowel sounds x4. MUSCULOSKELETAL: No obvious deformities. Extremities without clubbing, cyanosis , or edema. NEUROLOGICAL: Awake and alert. No obvious cranial nerve deficits. Motor grossly within normal limits. 5/5 muscle strength in bilateral upper and lower extremities. Normal speech. PSYCHIATRIC: Appropriate mood and affect; insight and judgment normal. Results - Labs CBC & Chem 7: 02/06/18 07:47 02/06/18 07:47 Labs: Laboratory Results - last 24 hr 02/05/18 02/05/18 02/06/18 21:00 21:00 04:25 CBC w Diff Auto diff final WBC 6.4 RBC 4.78 Hgb 15.0 Hct 43.9 MCV 91.7 MCH 31.3 MCHC 34.1 RDW 12.4 Plt Count 241 MPV 7.3 Neut % (Auto) 73.2 H Lymph % (Auto) 18.6 [place] % (Auto) 7.0 Eos % (Auto) 0.1 Baso % (Auto) 1.1 Neut # (Auto) 4.6 Lymph # (Auto) 1.2 [place] # (Auto) 0.4 Eos # (Auto) 0.0 Baso # (Auto) 0.1 WBC Differential . Differential Comment . Sodium 135 L Potassium 3.4 L Chloride 99 Carbon Dioxide 23.4 Anion Gap 13 BUN 15 Creatinine 0.64 Estimated GFR Greater than 89 POC Glucose Random Glucose 176 H Calcium 8.4 L Total Bilirubin 0.9 AST 177 H ALT 124 H Alkaline Phosphatase 110 Total Creatine Kinase 89 Troponin I Less than 0.02 L Total Protein 8.0 Albumin 4.2 Lipase 3541 H Urine Color Yellow Urine Clarity Clear Urine pH 5.5 Ur Specific [place] Greater/equal 1.030 Urine Protein Negative Urine Glucose (UA) Negative Urine Ketones Negative Urine Occult Blood Negative Urine Nitrate Negative Urine Bilirubin Negative Urine Urobilinogen 0.2 Ur Leukocyte Esterase Negative Urine RBC 0-3 Urine WBC 0-5 Ur Squamous Epith Cells 0-5 Urine Mucus Few H Micro UA Comment Culture not ind Ur Microscopic Review Microscopic reviewed Urine Culture Comments Culture not ind 02/06/18 02/06/18 02/06/18 07:28 07:47 07:47 CBC w Diff Auto diff final WBC 10.1 D RBC 4.74 Hgb 14.8 Hct 43.2 MCV 91.1 MCH 31.2 MCHC 34.3 RDW 12.8 Plt Count 214 MPV 7.8 Neut % (Auto) 67.3 Lymph % (Auto) 22.2 [place] % (Auto) 9.2 H Eos % (Auto) 0.3 Baso % (Auto) 1.0 Neut # (Auto) 6.9 Lymph # (Auto) 2.2 [place] # (Auto) 0.9 Eos # (Auto) 0.0 Baso # (Auto) 0.1 WBC Differential . Differential Comment . Sodium 136 Potassium 3.4 L Chloride 101 Carbon Dioxide 22.7 Anion Gap 12 BUN 14 Creatinine 0.68 Estimated GFR Greater than 89 POC Glucose 111 H Random Glucose 101 Calcium 7.5 L D Total Bilirubin 1.1 H AST 122 H ALT 101 H Alkaline Phosphatase 103 Total Creatine Kinase Troponin I Total Protein 7.1 D Albumin 3.8 Lipase 4494 H Urine Color Urine Clarity Urine pH Ur Specific [place] Urine Protein Urine Glucose (UA) Urine Ketones Urine Occult Blood Urine Nitrate Urine Bilirubin Urine Urobilinogen Ur Leukocyte Esterase Urine RBC Urine WBC Ur Squamous Epith Cells Urine Mucus Micro UA Comment Ur Microscopic Review Urine Culture Comments Caprini VTE Risk Assessment Caprini VTE Risk Assessment: No/Low Risk (score <= 1) Caprini Risk Assessment Model: Point Value = 1 Point Value = 2 Point Value = 3 Point Value = 5 Age 41-60 Minor surgery BMI > 25 kg/m2 Swollen legs Varicose veins or History of unexplained or recurrent spontaneous Oral contraceptives or hormone replacement Sepsis (< 1 month) Serious lung disease, including pneumonia (< 1 month) Abnormal pulmonary function Acute myocardial infarction Congestive heart failure (< 1 month) History of inflammatory bowel disease Medical patient at bed rest Age 61-74 Arthroscopic surgery Major open surgery (> 45 min) Laparoscopic surgery (> 45 min) Malignancy Confined to bed (> 72 hours) Immobilizing plaster cast Central venous access Age >= 75 History of VTE Family history of VTE Factor V Leiden Prothrombin [id number] Lupus anticoagulant Anticardiolipin antibodies Elevated serum homocysteine Heparin-induced thrombocytopenia Other congenital or acquired thrombophilia Stroke (< 1 month) Elective arthroplasty Hip, pelvis, or leg fracture Acute spinal cord injury (< 1 month) Prophylaxis Regimen: Total Risk Factor Score Risk Level Prophylaxis Regimen 0-1 Low Early ambulation 2 Moderate Order ONE of the following: *Sequential Compression Device (SCD) *Heparin 5000 units SQ BID 3-4 Higher Order ONE of the following medications: *Heparin 5000 units SQ TID *Enoxaparin/Lovenox 40 mg SQ daily (WT < 150 kg, CrCl > 30 mL/min) *Enoxaparin/Lovenox 30 mg SQ daily (WT < 150 kg, CrCl > 10-29 mL/min) *Enoxaparin/Lovenox 30 mg SQ BID (WT < 150 kg, CrCl > 30 mL/min) AND/OR *Sequential Compression Device (SCD) 5 or more Highest Order ONE of the following medications: *Heparin 5000 units SQ TID (Preferred with Epidurals) *Enoxaparin/Lovenox 40 mg SQ daily (WT < 150 kg, CrCl > 30 mL/min) *Enoxaparin/Lovenox 30 mg SQ daily (WT < 150 kg, CrCl > 10-29 mL/min) *Enoxaparin/Lovenox 30 mg SQ BID (WT < 150 kg, CrCl > 30 mL/min) AND *Sequential Compression Device (SCD) Assessment and Plan - Assessment (1) Pancreatitis Code(s): K85.90 - Acute pancreatitis without necrosis or infection, unspecified Status: Acute - Plan This is a 57-year-old with: Acute pancreatitis Transaminitis -Patient presented with the complaints of abdominal pain x 3 days with associated nausea and vomiting. Unknown etiology, suspect alcohol. -Lipase greater than 4000 on presentation. -Pain control IV Dilaudid per pain scale. -Abdomen firm and tender, hypoactive bowel sounds, not passing gas. Will obtain ab/pelvis CT to rule out SBO vs ileus as well as other causes of pancreatitis. Pending and follow. -Ensure hydration, Continue IVF. -Protonix IV BID. -Antiemetics as needed. Supportive care. DVT Prophylaxis: SCDs. (1) Pancreatitis Qualifiers: Chronicity: acute Pancreatitis type: alcohol induced Acute pancreatitis complication: unspecified Qualified Code(s): K85.20 - Alcohol induced acute pancreatitis without necrosis or infection
[2018-02-06] MEDS: Sod Chloride 0.9% Inj 1,000 ML IV.CONT SCH ×2 (09:56→20:29)
[2018-02-06] MEDS: HYDROmorphone PF Inj 2 MG/ML Vial IV.PUSH PRN ×3 (10:06→20:30)
[2018-02-06] MEDS: Multivitamin/Minerals Therapeutic Tablet PO SCH (10:08)
[2018-02-06] MEDS ORDERED: Ketorolac Inj 30 MG/ML (IVP) Vial IV.PUSH ONE (12:34)
--- NOTE | 2018-02-06 13:13 | ECG ---
Date Performed: 02/05/2018 Time Performed: 21:07:08 PTAGE: 57 years EKG: Sinus rhythm POSSIBLE LEFT ATRIAL ENLARGEMENT MODERATE INTRAVENTRICULAR CONDUCTION DELAY BORDERLINE ECG NO PREVIOUS TRACING DOCTOR: Elizabeth Saab Interpretating Date/Time 02/06/2018 13:08:48
--- NOTE | 2018-02-06 13:43 | CT ---
EXAM DATE: 02/06/2018 1:11 PM EDT AGE/SEX: 57 years / Female INDICATIONS: Epigastric pain, nausea, vomiting CLINICAL DATA: This is the patient's initial encounter. Patient reports that signs and symptoms have been present for 1 day and indicates a pain score of 10/10. MEDICAL/SURGICAL HISTORY: Pancreatitis. Cholecystectomy. Hysterectomy. RADIATION DOSE: 20.45 CTDI (mGy) COMPARISON: . TECHNIQUE: Multiple contiguous axial images were obtained through the abdomen. Images were obtained using multiple row detector helical technique. Using automated exposure control and adjustment of the mA and/or kV according to patient size, radiation dose was kept as low as reasonably achievable to o btain optimal diagnostic quality images. DICOM format image data is available electronically for rev iew and comparison. FINDINGS: Lower Lungs: There is linear density at the posterior medial lung bases bilaterally being worse on th e left likely related to atelectasis. Liver: There is diffuse decreased attenuation to the liver. Spleen: Homogeneous density without enlargement. Pancreas: There is inflammatory induration seen around the pancreas and extending into the base of t he mesentery and the left retroperitoneum and left paracolic gutter region. Kidneys: Normal in size and shape. No evidence of mass or hydronephrosis. There appears to be some c ontrast within the collecting system presumably from recent contrast administration. Adrenal Glands: Unremarkable. Aorta: The aorta and proximal iliac vessels are grossly unremarkable without aneurysmal dilation. Bowel/Mesentery: There is a moderate hiatal hernia. The bowel loops are grossly unremarkable. The ce cum and sigmoid colon have a normal configuration. A small amount of free fluid present. Abdominal Wall: Intact. Retroperitoneum: No evidence of adenopathy in the retrocrural, para-aortic, or deep pelvic regions. Bladder: Contours are smooth. Reproductive Organs: The patient appears to be status post hysterectomy. Inguinal: The inguinal region is unremarkable without evidence of adenopathy. Bony Structures: Degenerative change in the lumbar spine. CONCLUSION: 1. Inflammatory change around the pancreas consistent with acute pancreatitis. No abscess or pseudoc yst is seen. 2. Diffuse hepatic steatosis. 3. Moderate hiatal hernia. Electronically signed by: Anil Menezes MD 02/06/2018 1:42 PM EDT
[2018-02-07] MEDS: HYDROmorphone PF Inj 2 MG/ML Vial IV.PUSH PRN ×2 (02:34→06:31)
[2018-02-07] MEDS: Sod Chloride 0.9% Inj 1,000 ML IV.CONT SCH (05:54)
[2018-02-07] MEDS: Ketorolac Inj 30 MG/ML (IVP) Vial IV.PUSH PRN (06:07)
[2018-02-07] MEDS: Multivitamin/Minerals Therapeutic Tablet PO SCH (08:38)
[2018-02-07] MEDS: Pantoprazole Inj 40 MG Vial IV.PUSH SCH (08:38)
[2018-02-07] MEDS: Folic Acid 1 MG Tablet PO SCH (08:38)
[2018-02-07] MEDS: Senna/Docusate Sodium 8.6/50 MG Tablet PO SCH (08:38)
--- NOTE | 2018-02-07 08:44 | P.PNIM ---
Subjective Interval history: Follow-up acute pancreatitis. Patient seen and examined, patient is ambulating in room, asking if she could go outside to smoke. Patient denies stay in room, awaiting labs this morning. She is tolerating p.o. intake well without any nausea or vomiting. Abdominal pain has improved. No chest pain. Vital signs stable overnight. Patient is requesting to leave. Encouraged to stay, labs are pending. Patient is insistent on leaving. AGAINST MEDICAL ADVICE. Physical Exam Vital signs: Vital Signs 02/06/18 09:56 02/06/18 12:00 02/06/18 16:00 Temperature 98.0 F 98.6 F Pulse Rate 96 H 95 H Respiratory Rate 20 19 19 Blood Pressure 138/98 H 168/93 H Pulse Oximetry 94 L 95 02/06/18 20:00 02/07/18 00:00 Temperature 98.2 F 97.5 F L Pulse Rate 91 H 99 H Respiratory Rate 20 20 Blood Pressure 147/90 H 133/89 Pulse Oximetry 96 92 L Intake & Output 02/06/18 02/07/18 02/07/18 18:59 06:59 18:59 Intake Total 1360 / 1360 2480 / 2480 Balance 1360 / 1360 2480 / 2480 Weight 86.4 kg Intake: IV 400 / 400 1999 NS Inj 1,000 ML @ 100 mls/hr IV 400 / 400 1999 .CONT .Q10H LUPE Rx#:[id number] Oral 960 / 960 480 / 480 Other: # Voids 5 3 Date of Last Bowel Movement 02/05/18 02/05/18 # Bowel Movements 0 Narrative: GENERAL: Well-developed, well-nourished patient SKIN: Warm and dry. No rash. HEAD: Normocephalic. Atraumatic. EYES: Pupils equal and round. No scleral icterus. No injection or drainage. ENT: No nasal bleeding or discharge. Mucous membranes pink and moist. NECK: Supple. Trachea midline. CARDIOVASCULAR: Regular rate and rhythm. S1, S2 noted. No murmur appreciated. RESPIRATORY: No accessory muscle use. Clear to auscultation. Breath sounds equal bilaterally. GASTROINTESTINAL: Abdomen round and firm. Active bowel sounds x4. MUSCULOSKELETAL: No obvious deformities. Extremities without clubbing, cyanosis , or edema. NEUROLOGICAL: Awake and alert. No obvious cranial nerve deficits. Motor grossly within normal limits. 5/5 muscle strength in bilateral upper and lower extremities. Normal speech. PSYCHIATRIC: Appropriate mood and affect; insight and judgment normal. Results - Labs CBC & Chem 7: 02/06/18 07:47 02/07/18 08:04 Laboratory Results - last 24 hr 02/06/18 02/06/18 02/06/18 07:47 07:47 12:18 CBC w Diff Auto diff final WBC 10.1 D RBC 4.74 Hgb 14.8 Hct 43.2 MCV 91.1 MCH 31.2 MCHC 34.3 RDW 12.8 Plt Count 214 MPV 7.8 Neut % (Auto) 67.3 Lymph % (Auto) 22.2 [place] % (Auto) 9.2 H Eos % (Auto) 0.3 Baso % (Auto) 1.0 Neut # (Auto) 6.9 Lymph # (Auto) 2.2 [place] # (Auto) 0.9 Eos # (Auto) 0.0 Baso # (Auto) 0.1 WBC Differential . Differential Comment . Carbon Dioxide 22.7 Anion Gap 12 BUN 14 Creatinine 0.68 Estimated GFR Greater than 89 POC Glucose 109 Random Glucose 101 Calcium 7.5 L D Total Bilirubin 1.1 H AST 122 H ALT 101 H Alkaline Phosphatase 103 Total Protein 7.1 D Albumin 3.8 Lipase 4494 H - Imaging Impressions Abdomen/Pelvis CT 02/06/18 00:00 CONCLUSION: 1. Inflammatory change around the pancreas consistent with acute pancreatitis. No abscess or pseudocyst is seen. 2. Diffuse hepatic steatosis. 3. Moderate hiatal hernia. Assessment and Plan - Assessment (1) Pancreatitis Code(s): K85.90 - Acute pancreatitis without necrosis or infection, unspecified Status: Acute - Plan This is a 57-year-old with: Acute pancreatitis Transaminitis -Patient presented with the complaints of abdominal pain x 3 days with associated nausea and vomiting. Unknown etiology, suspect alcohol. -Lipase greater than 4000 on presentation. Trending down. -Pain control IV Dilaudid per pain scale. -Abdomen soft with presence of bowel movement overnight. -Abdominal/pelvis CT with no ileus or small bowel obstruction. Acute pancreatitis seen. -Ensure hydration, tolerating p.o. intake -Protonix IV BID. DVT Prophylaxis: SCDs. Patient left AGAINST MEDICAL ADVICE prior to labs resulted today. (1) Pancreatitis Qualifiers: Chronicity: acute Pancreatitis type: alcohol induced Acute pancreatitis complication: unspecified Qualified Code(s): K85.20 - Alcohol induced acute pancreatitis without necrosis or infection
[2018-02-07 08:55] LABS: Chloride 103 meq/L (98-107); Potassium 3.6 meq/L (3.5-5.1); Sodium 136 meq/L (136-145)
[2018-02-07 08:58] LABS: Calcium 7.8 mg/dL (8.5-10.1)
[2018-02-07 08:59] LABS: Albumin 3.5 g/dL (3.4-5.0); Anion Gap 10 meq/L (5-15); Blood Urea Nitrogen 10 mg/dL (7-18); Carbon Dioxide 22.9 meq/L (21.0-32.0); Glucose,Random 88 mg/dL (74-106)
[2018-02-07 09:00] VITALS: BP 162/75; PULSE 89; RESP 16; TEMP 96.8; O2SAT 94
[2018-02-07 09:02] LABS: Alanine Aminotransferase 92 U/L (10-53); Aspartate Aminotransferase 129 U/L (15-37); Glomerular Filtration Rate Greater Than 89 mL/min (>89)
[2018-02-07 09:04] LABS: Lipase 2101 U/L (73-393); Total Protein 6.9 g/dL (6.4-8.2)
[2018-02-07 09:05] LABS: Alkaline Phosphatase 113 U/L (45-117)
--- NOTE | 2018-02-07 09:42 | P.AMA ---
AMA Note - Diagnosis (1) Pancreatitis AMA Statement: Patient Angeline Graham has decided to leave the hospital against medical advice. This patient has the capacity to refuse care and understands the risks of leaving, including permanent disability and/or , and has had an opportunity to ask questions about his/her condition. The patient has been informed that he/she may return for care at any time, and follow up has been arranged/advised. Discharge Disposition: 01 Discharge Home Patient Condition on Discharge: Stable
== END 2018-02-07 09:50 | disposition left against medical advice (07) ==
LOC: PHED 20:29 → PHEDA 21:55 → PH3 22:49
PROVIDERS: ADMIT Internal Medicine; ATTEND Internal Medicine